=== PATIENT | female | born 1995 | race Caucasian/White ===

== ENCOUNTER 2018-03-02 06:03 | Emergency (ER) | payer OTHER ==
[2018-03-02] MEDS ORDERED: NA CHLORIDE 0.9% 1,000 ML ONE (06:24)
[2018-03-02 06:49] LABS: Absolute Lymphocytes (CBC) 2.5 K/uL (0.7-4.9); Absolute Monocytes 0.6 K/uL (0.1-1.3); Absolute Neutrophil 4.4 K/uL (1.8-8.0); Eosinophils % 2.1 % (0-4.4); Hematocrit 42.6 % (36.0-45.0); Lymphocytes % 31.9 % (15.3-44.8); MCH 32.2 pg (27.0-35.0); MCV 95.3 fL (80-100); MPV 9.3 fL (7.6-11.3); Monocytes % 8.1 % (3.3-12.3); RBC Red Blood Cell Count 4.47 M/uL (3.86-4.86)
[2018-03-02 06:53] LABS: Bicarbonate 25 mEq/L (21-31); Glucose Level 106 mg/dL (65-120); Potassium 3.9 mEq/L (3.6-5.0); Sodium Level 138 mEq/L (135-145)
[2018-03-02 06:54] LABS: BUN Blood Urea Nitrogen 10 mg/dL (6-20)
[2018-03-02 07:07] LABS: HCG, Quantitative < 5.0 mIU/mL (<5)
--- NOTE | 2018-03-02 07:17 | EDPHYS ---
Physician Documentation [facility] Name: Marta Lawson Age: 22 yrs Sex: Female : 1995 Arrival Date: 03/02/2018 Time: 06:07 Bed 5 Private MD: ED Physician Mike To HPI: 03/02 06:31 This 22 yrs old Female presents to ER via Ambulatory with complaints of snw Nausea, Abdominal Pain. 06:31 The patient presents to the emergency department with nausea, that is moderate, snw vomiting. Onset: The symptoms/episode began/occurred 3 day(s) ago, and became persistent. Possible causes: , sick contacts. The symptoms are aggravated by nothing. Associated signs and symptoms: Pertinent positives: abdominal pain, nausea, vomiting, cough. Severity of symptoms: At their worst the symptoms were moderate. 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 The patient has not recently seen a physician. positive and negative UPT over the weekend. 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 - Social history:: Smoking status: Patient uses tobacco products, smokes one pack cigarettes per day. ROS: 06:31 Eyes: Negative for injury, pain, redness, and discharge, ENT: Negative for injury, snw pain, and discharge, Neck: Negative for injury, pain, and swelling, Cardiovascular: Negative for chest pain, palpitations, and edema. 06:31 Back: Negative for injury and pain, : Negative for injury, bleeding, discharge, and swelling, MS/Extremity: Negative for injury and deformity, Skin: Negative for injury, rash, and discoloration, Neuro: Negative for headache, weakness, numbness, tingling, and seizure. 06:31 Constitutional: Positive for body aches, fatigue, malaise, poor PO intake. 06:31 Respiratory: Positive for cough. 06:31 Abdomen/GI: Positive for nausea and vomiting, abdominal cramps. Exam: 06:33 Constitutional: This is a well developed, well nourished patient who is awake, alert, snw and in no acute distress. Head/Face: Normocephalic, atraumatic. Eyes: Pupils equal round and reactive to light, extra-ocular motions intact. Lids and lashes normal. Conjunctiva and sclera are non-icteric and not injected. Cornea within normal limits. Periorbital areas with no swelling, redness, or edema. ENT: Nares patent. No nasal discharge, no septal abnormalities noted. Tympanic membranes are normal and external auditory canals are clear. Oropharynx with no redness, swelling, or masses, exudates, or evidence of obstruction, uvula midline. Mucous membranes moist. Neck: Trachea midline, no thyromegaly or masses palpated, and no cervical lymphadenopathy. Supple, full range of motion without nuchal rigidity, or vertebral point tenderness. No Meningismus. Chest/axilla: Normal chest wall appearance and motion. Nontender with no deformity. No lesions are appreciated. 06:33 Abdomen/GI: Soft, non-tender, with normal bowel sounds. No distension or tympany. No guarding or rebound. No evidence of tenderness throughout. Back: No spinal tenderness. No costovertebral tenderness. Full range of motion. Skin: Warm, dry with normal turgor. Normal color with no rashes, no lesions, and no evidence of cellulitis. MS/ Extremity: Pulses equal, no cyanosis. Neurovascular intact. Full, normal range of motion. Neuro: Awake and alert, GCS 15, oriented to person, place, time, and situation. Cranial nerves II-XII grossly intact. Motor strength 5/5 in all extremities. Sensory grossly intact. Cerebellar exam normal. Normal gait. 06:33 Cardiovascular: Rate: tachycardic. 06:33 Respiratory: the patient does not display signs of respiratory distress, Respirations: normal, Breath sounds: are clear throughout, bronchitic cough. Vital Signs: 06:16 BP 130 / 90; Pulse 115; Resp 18; Temp 98.4; Pulse Ox 100% on R/A; Weight 65.77 kg; aa1 Height 5 ft. 0 in. (152.40 cm); Pain 6/10; 06:57 BP 112 / 79; Pulse 78; Resp 16; Pulse Ox 100% on R/A; ak1 07:30 BP 127 / 79; Pulse 79; Resp 16; Temp 98.4; Pulse Ox 100% on R/A; Pain 6/10; sg 06:16 Body Mass Index 28.32 (65.77 kg, 152.40 cm) aa1 MDM: 06:20 Patient medically screened. snw 07:16 Data reviewed: vital signs, nurses notes. Data interpreted: Pulse oximetry: on room air snw is 100 %. Interpretation: normal. Counseling: I had a detailed discussion with the patient and/or guardian regarding: the historical points, exam findings, and any diagnostic results supporting the discharge/admit diagnosis, lab results, the need for outpatient follow up, to return to the emergency department if symptoms worsen or persist or if there are any questions or concerns that arise at home. Special discussion: Based on the patient's Hx, exam, and Dx evaluation, there is no indication for emergent surgery or inpatient Tx. It is understood by the patient/guardian that if the Sx's persist or worsen they need to return immediately for re-evaluation. Based on the history and exam findings, there is no indication for further emergent testing or inpatient evaluation. I discussed with the patient/guardian the need to see the primary care provider for further evaluation of the symptoms. 03/02 06:18 Order name: Quantitative Hcg; Complete Time: 07:08 snw 03/02 06:18 Order name: Abo/rh Typing; Complete Time: 07:14 snw 03/02 06:18 Order name: Basic Metabolic Panel; Complete Time: 07:08 snw 03/02 06:18 Order name: CBC with Diff; Complete Time: 07:03 snw 03/02 06:38 Order name: Test, Serum; Complete Time: 07:14 snw 03/02 06:40 Order name: Urine Dipstick--Ancillary (enter results) rg2 03/02 06:18 Order name: IV Saline Lock; Complete Time: 06:42 snw 03/02 06:18 Order name: Labs collected and sent; Complete Time: 06:42 snw 03/02 06:18 Order name: NPO; Complete Time: 06:23 snw 03/02 06:18 Order name: Urine Dipstick-Ancillary (obtain specimen); Complete Time: 06:39 snw 03/02 06:40 Order name: Urine --Ancillary (enter results) rg2 Administered Medications: 06:42 Drug: NS 0.9% 1000 ml Route: IV; Rate: 1 bolus; Site: right antecubital; ak1 07:30 Follow up: Response: No adverse reaction; IV Status: Completed infusion; IV Intake: sg 990ml Disposition: 03/02/18 07:16 Discharged to Home. Impression: Viral infection, unspecified. - Condition is Stable. - Discharge Instructions: Fever, Adult, Viral Infections, Rehydration, Adult. - Work release form, Medication Reconciliation Form, Thank You Letter, Antibiotic Education, Prescription Opioid Use form. - Follow up: Private Physician; When: 2 - 3 days; Reason: Recheck today's complaints, Continuance of care, Re-evaluation by your physician. Follow up: Emergency Department; When: As needed; Reason: Worsening of condition. Addendum: 03/05/2018 02:51 Co-signature as Attending Physician, Mike To MD. g s Signatures: Dispatcher [employer] EDReilly Rodriguez, RN RN sg Abigail aDvidson, RN RN aa1 Latha Fisher, BUILDING SERVICES ENGINEER-C BUILDING SERVICES ENGINEER-Csnw Makenna Rios RN RN ak1 Mike To MD MD
--- NOTE | 2018-03-02 07:17 | ER ---
Nurse's Notes [facility] Name: Marta Lawson Age: 22 yrs Sex: Female : 1995 Arrival Date: 03/02/2018 Time: 06:07 Bed 5 Private MD: Diagnosis: Viral infection, unspecified Presentation: 03/02 06:14 Presenting complaint: Patient states: cramping and nausea x 4 days. Reports she has aa1 taken 5 tests that have all been positive. Also c/o heavy, white vaginal discharge. Transition of care: patient was not received from another setting of care. Onset of symptoms was February 27, 2018. Care prior to arrival: None. 06:14 Method Of Arrival: Ambulatory aa1 06:14 Acuity: ROSEMARY 3 aa1 Triage Assessment: 06:16 General: Appears in no apparent distress. comfortable, Behavior is calm, cooperative, aa1 appropriate for age. 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 - Social history:: Smoking status: Patient uses tobacco products, smokes one pack cigarettes per day. Screenin:22 Abuse screen: Denies threats or abuse. Denies injuries from another. Nutritional ak1 screening: No deficits noted. Tuberculosis screening: No symptoms or risk factors identified. Fall Risk None identified. Assessment: 06:23 Pain: Complains of pain in abdomen. GI: Abdomen is round. ak1 06:40 General: Appears in no apparent distress. Behavior is calm, cooperative. Neuro: No ak1 deficits noted. Cardiovascular: No deficits noted. Respiratory: Reports cough that is pt stated she has been "taking care of my ex who has pneumonia". : Reports lower abd cramps X1 day with no cycle since jan 10. pt stated she has taken urine test at home with "some positive and some negative". EENT: No signs and/or symptoms were reported regarding the EENT system. Derm: No signs and/or symptoms reported regarding the dermatologic system. Musculoskeletal: No signs and/or symptoms reported regarding the musculoskeletal system. 07:03 Reassessment: report given to Reilly Valdivia RN and Kelly Hoffman RN. ak1 Vital Signs: 06:16 BP 130 / 90; Pulse 115; Resp 18; Temp 98.4; Pulse Ox 100% on R/A; Weight 65.77 kg; aa1 Height 5 ft. 0 in. (152.40 cm); Pain 6/10; 06:57 BP 112 / 79; Pulse 78; Resp 16; Pulse Ox 100% on R/A; ak1 07:30 BP 127 / 79; Pulse 79; Resp 16; Temp 98.4; Pulse Ox 100% on R/A; Pain 6/10; sg 06:16 Body Mass Index 28.32 (65.77 kg, 152.40 cm) aa1 ED Course: 06:07 Patient arrived in ED. al2 06:13 Mahin Knight, ASIF is Primary Nurse. bp 06:16 Triage completed. aa1 06:16 Arm band placed on right wrist. Patient placed in an exam room, on a stretcher. aa1 06:18 Latha [facility]C [facility]. snw 06:18 Mike To MD is Attending Physician. snw 06:22 Patient has correct armband on for positive identification. Bed in low position. Call ak1 light in reach. Side rails up X 1. Pulse ox on. NIBP on. 06:35 Initial lab(s) drawn, by sd, sent to lab. Urine collected: clean catch specimen, clear, ak1 UPT negative. 06:39 Inserted saline lock: 20 gauge in right antecubital area, using aseptic technique. ak1 Blood collected. 07:36 No provider procedures requiring assistance completed. IV discontinued, intact, sg bleeding controlled, No redness/swelling at site. Pressure dressing applied. Administered Medications: 06:42 Drug: NS 0.9% 1000 ml Route: IV; Rate: 1 bolus; Site: right antecubital; ak1 07:30 Follow up: Response: No adverse reaction; IV Status: Completed infusion; IV Intake: sg 990ml Intake: 07:30 IV: 990ml; Total: 990ml. sg Outcome: 07:16 Discharge ordered by . snw 07:30 Discharged to home ambulatory. sg 07:30 Condition: good 07:30 Discharge instructions given to patient, Instructed on discharge instructions, follow up and referral plans. Demonstrated understanding of instructions, follow-up care. 07:34 Patient left the ED. sg Signatures: Reilly Diehl RN Abigail Castillo RN RN aa1 Latha Fisher, CASING GRADER-C CASING GRADER-Csnw Makenna Rios RN RN ak1 Mahin Knight RN ASIF Nielsen, Carina lerner
[2018-03-02 07:42] VITALS: TEMP 98.4; O2SAT 100
[2018-03-02 07:43] VITALS: BP 112/79
[2018-03-02 07:48] LABS: Urine Blood NEGATIVE (NEG); Urine Glucose NEGATIVE (NEG); Urine Protein NEGATIVE (NEG); Urine Specific Gravity >1.030 (1.005-1.030)
== END 2018-03-02 07:34 | disposition home or self-care (01) ==
LOC: ER 06:03
DX: B34.9 Viral infection, unspecified (principal); F17.210 Nicotine dependence, cigarettes, uncomplicated; Z88.2 Allergy status to sulfonamides; Z91.013 Allergy to seafood
CPT/HCPCS: 36415; 80048; 81003; 81025; 84702; 84703; 85025; 86900; 86901; 96360; 99284; J7030

== ENCOUNTER 2018-05-23 00:10 | Emergency (ER) | payer OTHER ==
[2018-05-23] MEDS ORDERED: HYDROCODONE/APAP 10/325 TAB ONE (00:47)
--- NOTE | 2018-05-23 01:30 | EDPHYS ---
Physician Documentation [facility] Name: Marta Lawson Age: 23 yrs Sex: Female : 1995 Arrival Date: 05/23/2018 Time: 00:12 Bed 14 Private MD: ED Physician Charly Dozier HPI: 05/23 01:00 This 23 yrs old Female presents to ER via Wheelchair with complaints of Right pm1 Ankle Injury. 01:00 The patient presents with pain, that is acute. The complaints affect the right ankle. pm1 Onset: The symptoms/episode began/occurred just prior to arrival. Context: The problem was sustained outdoors, resulted from a mis-step by the patient, on a curb, The mechanism of injury involved inversion of the affected ankle. Associated signs and symptoms: Pertinent positives: swelling, Pertinent negatives: calf tenderness, fever, numbness, tingling. Modifying factors: The symptoms are alleviated by nothing, the symptoms are aggravated by weight bearing. Severity of symptoms: in the emergency department the symptoms are unchanged. The patient has not experienced similar symptoms in the past. Patient rolled her right ankle while trying to step on a curb to get into her vehicle. 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 ea Historical: - Allergies: 00:39 SEAFOOD; ea 00:39 Sulfa (Sulfonamide Antibiotics); ea - PMHx: 00:39 ADD/ADHD; Anxiety; Bipolar disorder; Depression; PTSD; ea - PSHx: 00:39 None; ea - Immunization history:: Adult Immunizations up to date. - Social history:: Smoking status: Patient uses tobacco products, smokes one pack cigarettes per day. - Ebola Screening: : No symptoms or risks identified at this time. ROS: 01:00 Constitutional: Negative for fever, chills, and weight loss, Eyes: Negative for injury, pm1 pain, redness, and discharge, ENT: Negative for injury, pain, and discharge, Neck: Negative for injury, pain, and swelling, Cardiovascular: Negative for chest pain, palpitations, and edema, Respiratory: Negative for shortness of breath, cough, wheezing, and pleuritic chest pain, Abdomen/GI: Negative for abdominal pain, nausea, vomiting, diarrhea, and constipation, Back: Negative for injury and pain, : Negative for injury, bleeding, discharge, and swelling. 01:00 Skin: Negative for injury, rash, and discoloration, Neuro: Negative for headache, weakness, numbness, tingling, and seizure. 01:00 MS/extremity: Positive for pain, of the right ankle, Negative for decreased range of motion, deformity. Exam: 01:00 Constitutional: This is a well developed, well nourished patient who is awake, alert, pm1 and in no acute distress. Head/Face: Normocephalic, atraumatic. Neck: Trachea midline, no thyromegaly or masses palpated, and no cervical lymphadenopathy. Supple, full range of motion without nuchal rigidity, or vertebral point tenderness. No Meningismus. Chest/axilla: Normal chest wall appearance and motion. Nontender with no deformity. No lesions are appreciated. Cardiovascular: Regular rate and rhythm with a normal S1 and S2. No gallops, murmurs, or rubs. Normal PMI, no JVD. No pulse deficits. Respiratory: Lungs have equal breath sounds bilaterally, clear to auscultation and percussion. No rales, rhonchi or wheezes noted. No increased work of breathing, no retractions or nasal flaring. Abdomen/GI: Soft, non-tender, with normal bowel sounds. No distension or tympany. No guarding or rebound. No evidence of tenderness throughout. Back: No spinal tenderness. No costovertebral tenderness. Full range of motion. Skin: Warm, dry with normal turgor. Normal color with no rashes, no lesions, and no evidence of cellulitis. 01:00 Musculoskeletal/extremity: Extremities: grossly normal except: noted in the right ankle: pain, swelling, tenderness, There is no evidence of decreased ROM, deformity, Sensation intact. Vital Signs: 00:42 BP 107 / 75; Pulse 112; Resp 20; Temp 98.0(O); Pulse Ox 98% on R/A; Weight 63.5 kg; ea Height 5 ft. 0 in. (152.40 cm); Pain 10/10; 01:29 BP 114 / 80; Pulse 100; Resp 18; Pulse Ox 99% on R/A; Pain 7/10; ea 00:42 Body Mass Index 27.34 (63.50 kg, 152.40 cm) ea MDM: 00:18 Patient medically screened. pm1 01:28 Data reviewed: vital signs. Data interpreted: Pulse oximetry: on room air is 98 %. pm1 Interpretation: normal. Counseling: I had a detailed discussion with the patient and/or guardian regarding: the historical points, exam findings, and any diagnostic results supporting the discharge/admit diagnosis, radiology results, the need for outpatient follow up, a orthopedic surgeon, to return to the emergency department if symptoms worsen or persist or if there are any questions or concerns that arise at home. 05/23 00:29 Order name: Ankle Right 3 View XRAY pm1 05/23 01:26 Order name: Crutches; Complete Time: 02:09 pm1 05/23 01:28 Order name: Splint - Ankle: Orthoglass: Stirrup; Complete Time: 02:09 pm1 Administered Medications: 00:53 Drug: [place] 10 mg-325 mg 1 tabs Route: PO; ea 01:31 Follow up: Response: No adverse reaction; Pain is decreased ea Disposition: 03:47 Co-signature as Attending Physician, Charly Dozier MD I agree with the assessment and kdr plan of care. Disposition: 05/23/18 01:30 Discharged to Home. Impression: Sprain of ankle - right. - Condition is Stable. - Discharge Instructions: Ankle Sprain, Cast or Splint Care, Crutch Use. - Prescriptions for Tylenol- Codeine #3 300-30 mg Oral Tablet - take 2 tablets by ORAL route every 6 hours As needed; 20 tablet. - Medication Reconciliation Form, Thank You Letter, Prescription Opioid Use form. - Follow up: Emergency Department; When: As needed; Reason: Worsening of condition. Follow up: Jeff Monte MD; When: 2 - 3 days; Reason: Recheck today's complaints, Continuance of care, Re-evaluation by your physician. - Problem is new. - Symptoms have improved. Signatures: Dispatcher [employer] EDMS Charly Dozier MD MD kdr Marinas, Patrick, NP RN MANAGED CARE pm1 Alysa Ruano RN RN ea Corrections: (The following items were deleted from the chart) 02:27 01:30 05/23/2018 01:30 Discharged to Home. Impression: Sprain of ankle - right. ea Condition is Stable. Forms are Medication Reconciliation Form, Thank You Letter, Antibiotic Education, Prescription Opioid Use. Follow up: Emergency Department; When: As needed; Reason: Worsening of condition. Follow up: Jeff Monte; When: 2 - 3 days; Reason: Recheck today's complaints, Continuance of care, Re-evaluation by your physician. Problem is new. Symptoms have improved. pm1
--- NOTE | 2018-05-23 01:30 | ER ---
Nurse's Notes [facility] Name: Marta Lawson Age: 23 yrs Sex: Female : 1995 Arrival Date: 05/23/2018 Time: 00:12 Bed 14 Private MD: Diagnosis: Sprain of ankle-right Presentation: 05/23 00:35 Presenting complaint: Patient states: Pt states she fell off a curb and might have ea rolled her right ankle. Transition of care: patient was not received from another setting of care. Onset of symptoms was May 23, 2018. Risk Assessment: Do you want to hurt yourself or someone else? Patient reports no desire to harm self or others. Initial Sepsis Screen: Does the patient meet any 2 criteria? No. Patient's initial sepsis screen is negative. Does the patient have a suspected source of infection? No. Patient's initial sepsis screen is negative. Care prior to arrival: None. 00:35 Method Of Arrival: Wheelchair ea 00:35 Acuity: ROSEMARY 5 ea Triage Assessment: 00:39 General: Appears uncomfortable, Behavior is calm, cooperative, appropriate for age. ea Pain: Complains of pain in right ankle Pain does not radiate. Pain currently is 10 out of 10 on a pain scale. Quality of pain is described as aching, Pain began 1 hour ago. EENT: No deficits noted. Neuro: Level of Consciousness is awake, alert, obeys commands, Oriented to person, place, time, situation. Cardiovascular: Heart tones S1 S2 present. Respiratory: Airway is patent Respiratory effort is even, unlabored, Respiratory pattern is regular, symmetrical. GI: No signs and/or symptoms were reported involving the gastrointestinal system. : No signs and/or symptoms were reported regarding the genitourinary system. Derm: Skin is pink, warm \T\ dry. Musculoskeletal: Swelling present in right ankle. 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 ea Historical: - Allergies: 00:39 SEAFOOD; ea 00:39 Sulfa (Sulfonamide Antibiotics); ea - PMHx: 00:39 ADD/ADHD; Anxiety; Bipolar disorder; Depression; PTSD; ea - PSHx: 00:39 None; ea - Immunization history:: Adult Immunizations up to date. - Social history:: Smoking status: Patient uses tobacco products, smokes one pack cigarettes per day. - Ebola Screening: : No symptoms or risks identified at this time. Screenin:00 Abuse screen: Denies threats or abuse. Nutritional screening: No deficits noted. ea Tuberculosis screening: No symptoms or risk factors identified. Fall Risk None identified. Assessment: 00:40 General: Appears uncomfortable, Behavior is crying, restless. Pain: Complains of pain ea in right ankle Pain radiates to right foot Pain currently is 10 out of 10 on a pain scale. Quality of pain is described as aching, Pain began 1 hour ago. Is continuous. Neuro: Level of Consciousness is awake, alert, obeys commands, Oriented to person, place, time, situation. Cardiovascular: Capillary refill < 3 seconds in right toes Patient's skin is warm and dry. Respiratory: Airway is patent Respiratory effort is even, unlabored, Respiratory pattern is regular, symmetrical. GI: No signs and/or symptoms were reported involving the gastrointestinal system. : No signs and/or symptoms were reported regarding the genitourinary system. EENT: No signs and/or symptoms were reported regarding the EENT system. Derm: Skin is pink, warm \T\ dry. Musculoskeletal: Swelling present in right ankle. Injury Description: swelling to right ankle. 01:30 Reassessment: Patient and/or family updated on plan of care and expected duration. Pain ea level reassessed. Patient is alert, oriented x 3, equal unlabored respirations, skin warm/dry/pink. 02:15 Reassessment: Patient and/or family updated on plan of care and expected duration. Pain ea level reassessed. Patient is alert, oriented x 3, equal unlabored respirations, skin warm/dry/pink. Discharge instruction given to patient, verbalized the understanding of instruction. Vital Signs: 00:42 BP 107 / 75; Pulse 112; Resp 20; Temp 98.0(O); Pulse Ox 98% on R/A; Weight 63.5 kg; ea Height 5 ft. 0 in. (152.40 cm); Pain 10/10; 01:29 BP 114 / 80; Pulse 100; Resp 18; Pulse Ox 99% on R/A; Pain 7/10; ea 00:42 Body Mass Index 27.34 (63.50 kg, 152.40 cm) ea ED Course: 00:12 Patient arrived in ED. am2 00:18 Marinas, Ravi, CARDIAC/VASCULAR SONOGRAPHER is PHCP. pm1 00:18 Charly Dozier MD is Attending Physician. pm1 00:35 Alysa Ruano RN is Primary Nurse. ea 00:37 Triage completed. ea 00:40 Arm band placed on right wrist. Patient placed in an exam room, on a stretcher, on ea pulse oximetry. 00:40 Patient has correct armband on for positive identification. Bed in low position. Call ea light in reach. Side rails up X2. 00:53 Ankle Right 3 View XRAY In Process Unspecified. EDMS 01:29 Jeff Monte MD is Referral Physician. pm1 02:09 No provider procedures requiring assistance completed. Patient did not have IV access ea during this emergency room visit. Administered Medications: 00:53 Drug: [place] 10 mg-325 mg 1 tabs Route: PO; ea 01:31 Follow up: Response: No adverse reaction; Pain is decreased ea Outcome: 01:30 Discharge ordered by MD. pm1 02:15 Discharged to home with crutches, with significant other. ea 02:25 Condition: improved ea 02:25 Discharge instructions given to patient, Instructed on discharge instructions, follow up and referral plans. medication usage, Demonstrated understanding of instructions, follow-up care, medications, Prescriptions given X 2. 02:27 Patient left the ED. ea Signatures: Dispatcher [employer] EDIA Ravi Reyes NP CARDIAC/VASCULAR SONOGRAPHER pm1 Estrellita Garcia am2 Alysa Ruano, RN RN ea
[2018-05-23 02:30] VITALS: TEMP 98
[2018-05-23 02:31] VITALS: BP 114/80; O2SAT 99
--- NOTE | 2018-05-23 08:15 | RAD REPORT ---
EXAM DESCRIPTION: RAD - Ankle Right 3 View - 05/23/2018 12:52 am CLINICAL HISTORY: Right ankle pain status post injury FINDINGS: Soft tissue swelling is present about the lateral malleolus. There is an equivocal tiny ch ip fracture from the lateral malleolus. No dislocation is seen
== END 2018-05-23 02:27 | disposition home or self-care (01) ==
LOC: ER 00:10
DX: S93.401A Sprain of unspecified ligament of right ankle, initial encounter (principal); X58.XXXA Exposure to other specified factors, initial encounter; Y93.01 Activity, walking, marching and hiking; Y92.89 Other specified places as the place of occurrence of the external cause; Z88.2 Allergy status to sulfonamides; Z91.013 Allergy to seafood; F17.210 Nicotine dependence, cigarettes, uncomplicated
CPT/HCPCS: 99284

== ENCOUNTER 2018-06-10 16:33 | Emergency (ER) | payer OTHER ==
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
[2018-06-10 17:48] VITALS: BP 120/75; TEMP 97.9; O2SAT 98
== END 2018-06-10 17:44 | disposition home or self-care (01) ==
LOC: ER 16:33
DX: S00.80XA Unspecified superficial injury of other part of head, initial encounter (principal); W22.09XA Striking against other stationary object, initial encounter; Y93.89 Activity, other specified; Y92.810 Car as the place of occurrence of the external cause; Z88.2 Allergy status to sulfonamides; Z91.013 Allergy to seafood
CPT/HCPCS: 70450; 99284

== ENCOUNTER 2018-06-25 14:17 | Emergency (ER) | payer OTHER ==
--- OUTSIDE RECORDS SUMMARY | 2018-06-25 14:21 | XMS REPORT | Summary of Care ---
:1995 Author Name Nelly Fritz M.A. Address Unavailable Unavailable , Care Team Providers Name Role Phone LOIDA IVORY M.D. Unavailable Unavailable Functional Status Name Dates Details Functional status health issues are not documented Status: Name Dates Details Cognitive status health issues are not documented Status: Problems Name Dates Details Grade 2 ankle sprain, right, initial encounter (845.00, S93.401A) Status: Active Sprain of anterior talofibular ligament of right ankle, initial encounter ( 845.09, S93.491A) Status: Active Sprain of calcaneofibular ligament of right ankle, initial encounter (845.02, S93.411A) Status: Active Medications Name Dates Details Medications not documented Allergies and Adverse Reactions Name Dates Details Allergy history not documented Status: Procedures Procedure Dates Details Procedures not documented Immunization Name Dates Details Immunizations not documented Social History Name Dates Details Unknown if ever smoked Vital Signs Date Test Result Details No Known Vitals to report Results Date Description Value Details Results not documented Plan of Care Name Dates Details Planned Observations Planned Goals not documented Planned Encounters Appointment; LOIDA IVORY M.D. On: 03-Jul-2018 15:15 Instructions Name Dates Details Instructions not documented Encounters Appointment; LOIDA IVORY M.D. On: 29-May-2018 12:45 Encounter Diagnosis: Problem not documented Appointment; LOIDA IVORY M.D. On: 29-May-2018 15:15 Encounter Diagnosis: Problem not documented Appointment; LOIDA IVORY M.D. On: 12-Jun-2018 15:00 Encounter Diagnosis: Problem not documented
[2018-06-25 15:03] LABS: Protime INR 1.06
--- NOTE | 2018-06-25 15:13 | RAD REPORT ---
EXAM DESCRIPTION: US - Abdomen Exam Limited - 06/25/2018 3:03 pm CLINICAL HISTORY: Abdominal pain. COMPARISON: None. FINDINGS: The gallbladder wall is not thickened. A gallstone is not seen. A 1 millimeter gallbladde r polyp is present The biliary tree is normal caliber. IMPRESSION: Small gallbladder polyp
[2018-06-25 15:22] LABS: Urine Blood NEGATIVE (NEG); Urine Glucose NEGATIVE (NEG); Urine Protein NEGATIVE (NEG); Urine Specific Gravity 1.025 (1.005-1.030)
[2018-06-25 15:24] LABS: Albumin 3.8 g/dL (3.4-5.0); Bilirubin Direct 0.1 mg/dL (0-0.2); Bilirubin Total 0.5 mg/dL (0.2-1.0); Magnesium 2.1 mg/dL (1.8-2.4); Potassium 3.5 mmol/L (3.5-5.1); Protein, Total 6.9 g/dL (6.4-8.2)
[2018-06-25] MEDS ORDERED: ONDANSETRON 4 MG/2 ML VIAL ONE (15:25)
[2018-06-25 15:46] LABS: Absolute Monocytes 0.5 K/uL (0.1-1.3); Absolute Neutrophil 4.8 K/uL (1.8-8.0); Basophils % 0.7 % (0-1.3); Eosinophils % 1.1 % (0-4.4); Hematocrit 41.3 % (36.0-45.0); MCH 33.3 pg (27.0-35.0); MCV 97.1 fL (80-100); MPV 9.6 fL (7.6-11.3); Monocytes % 6.4 % (3.3-12.3); RBC Red Blood Cell Count 4.25 M/uL (3.86-4.86)
--- NOTE | 2018-06-25 16:09 | EDPHYS ---
Physician Documentation [facility] Name: Marta Lawson Age: 23 yrs Sex: Female : 1995 Arrival Date: 06/25/2018 Time: 14:19 Bed 14 Private MD: ED Physician Familia Tolliver HPI: 06/25 14:58 This 23 yrs old Female presents to ER via Ambulatory with complaints of Chest jr8 Pain, Nausea. 14:58 The patient or guardian reports chest pain that is located primarily in the substernal jr8 area. The pain does not radiate. Associated signs and symptoms: Pertinent positives: nausea. The chest pain is described as sharp, stabbing. Duration: The patient or guardian reports multiple episodes. Modifying factors: The symptoms are alleviated by nothing. the symptoms are aggravated by nothing. Severity of pain: At its worst the pain was moderate in the emergency department the pain is unchanged. The patient has not experienced similar symptoms in the past. The patient has not recently seen a physician. 14:58 Patient stated that she has not been able to eat well. Has been nauseated every time jr8 she wants to eat. Has had chest pain as well . 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 - Social history:: Smoking status: Patient uses tobacco products, smokes one-half pack cigarettes per day. - Ebola Screening: : Patient negative for fever greater than or equal to 101.5 degrees Fahrenheit, and additional compatible Ebola Virus Disease symptoms Patient denies exposure to infectious person Patient denies travel to an Ebola-affected area in the 21 days before illness onset No symptoms or risks identified at this time. ROS: 14:58 Eyes: Negative for injury, pain, redness, and discharge, ENT: Negative for injury, jr8 pain, and discharge, Neck: Negative for injury, pain, and swelling, Respiratory: Negative for shortness of breath, cough, wheezing, and pleuritic chest pain, Back: Negative for injury and pain, MS/Extremity: Negative for injury and deformity, Skin: Negative for injury, rash, and discoloration, Neuro: Negative for headache, weakness, numbness, tingling, and seizure. 14:58 Cardiovascular: Positive for chest pain, Negative for edema, orthopnea, palpitations, paroxysmal nocturnal dyspnea. 14:58 Abdomen/GI: Positive for nausea, Negative for abdominal pain, diarrhea, constipation, abdominal cramps, abdominal distension, anorexia, dysphagia, hematemesis, black/tarry stool, rectal pain, rectal bleeding, bowel incontinence, flatulence. Exam: 14:58 Eyes: Pupils equal round and reactive to light, extra-ocular motions intact. Lids and jr8 lashes normal. Conjunctiva and sclera are non-icteric and not injected. Cornea within normal limits. Periorbital areas with no swelling, redness, or edema. ENT: Nares patent. No nasal discharge, no septal abnormalities noted. Tympanic membranes are normal and external auditory canals are clear. Oropharynx with no redness, swelling, or masses, exudates, or evidence of obstruction, uvula midline. Mucous membranes moist. Neck: Trachea midline, no thyromegaly or masses palpated, and no cervical lymphadenopathy. Supple, full range of motion without nuchal rigidity, or vertebral point tenderness. No Meningismus. Cardiovascular: Regular rate and rhythm with a normal S1 and S2. No gallops, murmurs, or rubs. Normal PMI, no JVD. No pulse deficits. Respiratory: Lungs have equal breath sounds bilaterally, clear to auscultation and percussion. No rales, rhonchi or wheezes noted. No increased work of breathing, no retractions or nasal flaring. Back: No spinal tenderness. No costovertebral tenderness. Full range of motion. Skin: Warm, dry with normal turgor. Normal color with no rashes, no lesions, and no evidence of cellulitis. MS/ Extremity: Pulses equal, no cyanosis. Neurovascular intact. Full, normal range of motion. Neuro: Awake and alert, GCS 15, oriented to person, place, time, and situation. Cranial nerves II-XII grossly intact. Motor strength 5/5 in all extremities. Sensory grossly intact. Cerebellar exam normal. Normal gait. 14:58 Abdomen/GI: Inspection: abdomen appears normal, Bowel sounds: active, all quadrants, Palpation: abdomen is soft and non-tender, in all quadrants, mass, is not appreciated, rebound tenderness, is not appreciated, voluntary guarding, is not appreciated, involuntary guarding, is not appreciated, no appreciated organomegaly, Indicators: McBurney's point is not tender, Mclaughlin's sign is negative, Rovsing's sign is negative, Liver: no appreciated palpable abnormalities, tenderness, is not appreciated, Patient extremely nauseated when I pressed on epigastric region . Vital Signs: 14:26 BP 108 / 80; Pulse 88; Resp 19; Temp 98.6; Pulse Ox 98% on R/A; Weight 58.97 kg; Height aj 5 ft. 0 in. (152.40 cm); 15:30 BP 103 / 62; Pulse 78; Resp 14; Pulse Ox 97% on R/A; Pain 7/10; ch 16:28 BP 105 / 58; Pulse 70; Resp 14; Temp 98.8; Pulse Ox 99% on R/A; Pain 6/10; ch 14:26 Body Mass Index 25.39 (58.97 kg, 152.40 cm) aj MDM: 14:25 Patient medically screened. [facility] 16:02 Data reviewed: vital signs, nurses notes, lab test result(s), EKG, radiologic studies, [facility] plain films, ultrasound, and as a result, I will discharge patient. Data interpreted: Pulse oximetry: on room air is 97 %. Interpretation: normal. Counseling: I had a detailed discussion with the patient and/or guardian regarding: the historical points, exam findings, and any diagnostic results supporting the discharge/admit diagnosis, lab results, radiology results, the need for outpatient follow up, a risk management analyst, to return to the emergency department if symptoms worsen or persist or if there are any questions or concerns that arise at home. Response to treatment: the patient's symptoms have resolved after treatment. 06/25 14:42 Order name: Basic Metabolic Panel; Complete Time: 15:44 06/25 14:42 Order name: CBC with Diff; Complete Time: 16:10 06/25 14:42 Order name: LFT's; Complete Time: 15:44 06/25 14:42 Order name: Magnesium; Complete Time: 15:44 06/25 14:42 Order name: NT PRO-BNP; Complete Time: 15:44 06/25 14:42 Order name: PT-INR; Complete Time: 15:50 06/25 14:42 Order name: Troponin (emerg Dept Use Only); Complete Time: 15:44 06/25 14:42 Order name: XRAY Chest (1 view); Complete Time: 17:27 06/25 14:42 Order name: Lipase; Complete Time: 15:44 06/25 14:43 Order name: US Abdomen Limited; Complete Time: 15:20 06/25 14:45 Order name: Urine Dipstick--Ancillary (enter results) bd 06/25 14:45 Order name: Urine --Ancillary (enter results) bd 06/25 14:45 Order name: Urine Dipstick-Ancillary; Complete Time: 15:44 EDMS 06/25 14:45 Order name: Urine --Ancillary; Complete Time: 15:44 EDMS 06/25 14:42 Order name: Urine Test (obtain specimen); Complete Time: 14:53 06/25 14:42 Order name: EKG; Complete Time: 14:43 06/25 14:42 Order name: Cardiac monitoring; Complete Time: 14:53 06/25 14:42 Order name: EKG - Nurse/Tech; Complete Time: 14:53 06/25 14:42 Order name: IV Saline Lock; Complete Time: 14:53 06/25 14:42 Order name: Labs collected and sent; Complete Time: 14:53 06/25 14:42 Order name: O2 Per Protocol; Complete Time: 14:53 06/25 14:42 Order name: O2 Sat Monitoring; Complete Time: 14:53 06/25 14:42 Order name: Urine Dipstick-Ancillary (obtain specimen); Complete Time: 14:53 Administered Medications: 15:30 Drug: Zofran 4 mg Route: IVP; Site: right forearm; 16:30 Follow up: Response: No adverse reaction ch Disposition: 17:58 Co-signature as Attending Physician, Familia Tolliver MD. rn Disposition: 06/25/18 16:09 Discharged to Home. Impression: Nausea and vomiting, Chest pain, unspecified. - Condition is Stable. - Discharge Instructions: Nonspecific Chest Pain, Gastritis, Adult. - Prescriptions for omeprazole 40 mg Oral capsule,delayed release(DR/EC) - take 1 capsule by ORAL route once daily before a meal; 30 capsule. ondansetron 4 mg Oral tablet,disintegrating - place 1 tablet by TRANSLINGUAL route every 8 hours; 12 tablet. - Work release form, Medication Reconciliation Form, Thank You Letter, Antibiotic Education, Prescription Opioid Use form. - Follow up: Kiki Raymond MD; When: 1 - 2 days; Reason: Recheck today's complaints, Continuance of care, Re-evaluation by your physician. - Problem is new. - Symptoms have improved. Signatures: Dispatcher [employer] EDMS Lisa Stanley RN RN ch Myers, Amanda, RN RN aj Nieto, Roman, MD MD rn Roszak, Josh, PA PA jr8 Corrections: (The following items were deleted from the chart) 16:37 16:09 06/25/2018 16:09 Discharged to Home. Impression: Nausea and vomiting; Chest pain, ch unspecified. Condition is Stable. Forms are Medication Reconciliation Form, Thank You Letter, Antibiotic Education, Prescription Opioid Use. Follow up: Kiki Raymond; When: 1 - 2 days; Reason: Recheck today's complaints, Continuance of care, Re-evaluation by your physician. Problem is new. Symptoms have improved. jr8
--- NOTE | 2018-06-25 16:09 | ER ---
Nurse's Notes [facility] Name: Marta Lawson Age: 23 yrs Sex: Female : 1995 Arrival Date: 06/25/2018 Time: 14:19 Bed 14 Private MD: Diagnosis: Nausea and vomiting;Chest pain, unspecified Presentation: 06/25 14:24 Presenting complaint: Patient states: Reports SOB, chest pain, nausea for 2 weeks. aj Transition of care: patient was not received from another setting of care. Onset of symptoms was June 10, 2018. Risk Assessment: Do you want to hurt yourself or someone else? Patient reports no desire to harm self or others. Initial Sepsis Screen: Does the patient meet any 2 criteria? No. Patient's initial sepsis screen is negative. Does the patient have a suspected source of infection? No. Patient's initial sepsis screen is negative. Note Patient reports being noncompliant with psych medications or follow up. Care prior to arrival: None. 14:24 Method Of Arrival: Ambulatory 14:24 Acuity: ROSEMARY 3 aj Triage Assessment: 14:26 General: Appears in no apparent distress. comfortable, Behavior is calm, cooperative, aj appropriate for age. Pain: Complains of pain in chest. Neuro: Level of Consciousness is awake, alert, obeys commands, Oriented to person, place, time, situation, Appropriate for age. Cardiovascular: Reports chest pain, Capillary refill < 3 seconds in bilateral fingers Patient's skin is warm and dry. Respiratory: Airway is patent Respiratory effort is even, unlabored, Respiratory pattern is regular, symmetrical. GI: Reports nausea, vomiting. Derm: Skin is intact, is healthy with good turgor, Skin is pink, warm \T\ dry. normal. 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 - Social history:: Smoking status: Patient uses tobacco products, smokes one-half pack cigarettes per day. - Ebola Screening: : Patient negative for fever greater than or equal to 101.5 degrees Fahrenheit, and additional compatible Ebola Virus Disease symptoms Patient denies exposure to infectious person Patient denies travel to an Ebola-affected area in the 21 days before illness onset No symptoms or risks identified at this time. Screenin:54 Abuse screen: Denies threats or abuse. Denies injuries from another. Nutritional ch screening: No deficits noted. Tuberculosis screening: Fall Risk None identified. Assessment: 14:54 Reassessment: Patient appears in no apparent distress at this time. Patient and/or ch family updated on plan of care and expected duration. Pain level reassessed. Patient is alert, oriented x 3, equal unlabored respirations, skin warm/dry/pink. General: Appears in no apparent distress. uncomfortable, Behavior is calm, cooperative, appropriate for age. Pain: Complains of pain in head and chest Pain does not radiate. Pain currently is 7 out of 10 on a pain scale. Pain began gradually, two weeks ago. Neuro: No deficits noted. Level of Consciousness is awake, alert, obeys commands, Oriented to person, place, time, situation. Cardiovascular: Reports chest pain, nausea, Heart tones S1 S2 present Capillary refill < 3 seconds in bilateral fingers toes Clubbing of nail beds is absent JVD is absent Patient's skin is warm and dry. Pulses are all present. Edema is absent. Respiratory: Airway is patent Respiratory effort is even, unlabored, Breath sounds are clear bilaterally. GI: Abdomen is flat, non-distended, Bowel sounds present X 4 quads. Abd is soft X 4 quads Abdomen is tender to palpation in right upper quadrant and left upper quadrant Reports nausea, vomiting. : No signs and/or symptoms were reported regarding the genitourinary system. Derm: No signs and/or symptoms reported regarding the dermatologic system. 15:30 Reassessment: Patient appears in no apparent distress at this time. No changes from previously documented assessment. Patient and/or family updated on plan of care and expected duration. Pain level reassessed. Patient is alert, oriented x 3, equal unlabored respirations, skin warm/dry/pink. 16:28 Reassessment: Patient appears in no apparent distress at this time. Patient and/or family updated on plan of care and expected duration. Pain level reassessed. Patient is alert, oriented x 3, equal unlabored respirations, skin warm/dry/pink. Patient states feeling better. Vital Signs: 14:26 BP 108 / 80; Pulse 88; Resp 19; Temp 98.6; Pulse Ox 98% on R/A; Weight 58.97 kg; Height aj 5 ft. 0 in. (152.40 cm); 15:30 BP 103 / 62; Pulse 78; Resp 14; Pulse Ox 97% on R/A; Pain 7/10; ch 16:28 BP 105 / 58; Pulse 70; Resp 14; Temp 98.8; Pulse Ox 99% on R/A; Pain 6/10; ch 14:26 Body Mass Index 25.39 (58.97 kg, 152.40 cm) ED Course: 14:19 Patient arrived in ED. mr 14:25 Reza Lott PA is PHCP. jr8 14:25 Familia Tolliver MD is Attending Physician. jr8 14:26 Triage completed. aj 14:26 Arm band placed on right wrist. Patient placed in an exam room. aj 14:35 Patient has correct armband on for positive identification. Placed in gown. Bed in low mh5 position. Call light in reach. Side rails up X 1. Warm blanket given. Pillow given. Pulse ox on. NIBP on. 14:35 Urine collected: clean catch specimen, clear. mh5 14:53 Lisa Stanley, RN is Primary Nurse. ch 14:54 No apparent distress. ch 14:54 Initial lab(s) drawn, by il, sent to lab. Inserted saline lock: 18 gauge in right ch forearm, using aseptic technique. Blood collected. Patient maintains SpO2 saturation greater than 95% on room air. 14:55 Patient taken to ultrasound. via wheelchair. hr 15:02 Ultrasound completed. Patient moved to radiology via wheelchair. hr 15:03 US Abdomen Limited In Process Unspecified. EDMS 15:06 XRAY Chest (1 view) In Process Unspecified. EDMS 15:21 EKG done, by hvac technician residential. reviewed by Reza NIELSEN. sm3 16:03 Kiki Raymond MD is Referral Physician. jr8 16:28 No provider procedures requiring assistance completed. IV discontinued, intact, ch bleeding controlled, No redness/swelling at site. Pressure dressing applied. Administered Medications: 15:30 Drug: Zofran 4 mg Route: IVP; Site: right forearm; 16:30 Follow up: Response: No adverse reaction Outcome: 16:09 Discharge ordered by MD. hughes 16:28 Discharged to home ambulatory. 16:28 Condition: improved 16:28 Discharge instructions given to patient, Instructed on discharge instructions, follow up and referral plans. medication usage, Demonstrated understanding of instructions, follow-up care, medications, Prescriptions given X 2. 16:37 Patient left the ED. Signatures: Dispatcher [employer] EDLisa Verde, Estrellita Cox RN, ch, RN RN aj Rivera, Maria mr Elio, Reza Brandt PA PA jr8 Martinez, Maria [facility] Dania Rodriguez [facility]
--- NOTE | 2018-06-25 16:27 | RAD REPORT ---
EXAM DESCRIPTION: RAD - Chest Single View - 06/25/2018 3:10 pm CLINICAL HISTORY: Chest pain, shortness of breath COMPARISON: June 2017 TECHNIQUE: AP portable chest image was obtained 1500 hours . FINDINGS: Lungs are clear. Heart and vasculature are normal. No measurable pleural effusion and no p neumothorax. No gross bony abnormality seen. No acute aortic findings suspected. IMPRESSION: No acute cardiopulmonary process.
--- NOTE | 2018-06-25 16:37 | EKG ---
Test Date: 2018-06-25 Test Time: 14:48:43 Finisher Denture: LISSETH MEASUREMENT RESULTS: Intervals: Rate: 82 SC: 134 QRSD: 90 QT: 352 QTc: 411 [place]: P: 22 SC: 134 QRS: 63 T: 31 INTERPRETIVE STATEMENTS: Normal sinus rhythm with sinus arrhythmia Normal ECG Compared to ECG 02/06/2017 00:10:57 Myocardial infarct finding no longer present Electronically Signed On 06-25-18 16:36:55 CDT by Carlos Cummins
[2018-06-25 16:45] VITALS: BP 105/58; TEMP 98.8; O2SAT 99
== END 2018-06-25 16:37 | disposition home or self-care (01) ==
LOC: ER 14:17
DX: R07.9 Chest pain, unspecified (principal); R11.2 Nausea with vomiting, unspecified; Z88.2 Allergy status to sulfonamides; F17.210 Nicotine dependence, cigarettes, uncomplicated; Z91.030 Bee allergy status; Z91.013 Allergy to seafood
CPT/HCPCS: 36415; 71045; 76705; 80048; 80076; 81003; 81025; 83690; 83735; 83880; 84484; 85025; 85610; 93005; 96374; 99285; J2405

== ENCOUNTER 2018-10-03 21:48 | Emergency (ER) | payer SELFPAY ==
--- OUTSIDE RECORDS SUMMARY | 2018-10-03 21:51 | XMS REPORT | Summary of Care ---
:1995 Author Name LOIDA IVORY M.D. Address Unavailable Unavailable , Care Team Providers Name Role Phone LOIDA IVORY M.D. Unavailable Unavailable Unavailable Unavailable Unavailable Functional Status Name Dates Details [...] [id number]) Status: Active Medications Name Dates Details Meloxicam 7.5 MG Oral Tablet TAKE 1 TABLET DAILY NEEDED. Quantity: 1 Refills: 0 LOIDA IVORY M.D. Start : 14-Aug-2018 Active 30 Tablet Bottle Allergies and Adverse Reactions Name Dates Details No Known Drug Allergies (Allergy) Status: Active Procedures Procedure Dates Details MR Ankle wo contrast [id number] Date: 14-Aug-2018 Immunization Name Dates Details Immunizations not documented Social History Name Dates Details Unknown if ever smoked Vital Signs Date Test Result Details No Known Vitals to report Results Date Description Value Details Results not documented Plan of Care Name Dates Details Planned Observations Planned Goals not documented Interventions Provided Medication ChangesMeloxicam 7.5 MG Oral Tablet - StartLabs/Procedures/ImagingMR Ankle wo contrast [id number]; To Be Done: 14 Aug 2018 Instructions Name Dates Details Instructions not documented Encounters Appointment; LOIDA IVORY M.D. On: 29-May-2018 12:45 Encounter Diagnosis: Problem not documented Appointment; LOIDA IVORY M.D. On: 29-May-2018 15:15 Encounter Diagnosis: Problem not documented Appointment; LOIDA IVORY M.D. On: 12-Jun-2018 15:00 Encounter Diagnosis: Problem not documented Appointment; LOIDA IVORY M.D. On: 03-Jul-2018 15:15 Encounter Diagnosis: Problem not documented Appointment; LOIDA IVORY M.D. On: 31-Jul-2018 13:15 Encounter Diagnosis: Problem not documented Appointment; LOIDA IVORY M.D. On: 14-Aug-2018 13:00 Encounter Diagnosis: Problem not documented
[2018-10-03] MEDS ORDERED: IBUPROFEN 400 MG TAB ONE (22:48)
[2018-10-03] MEDS ORDERED: HYDROCODONE/APAP 5/325 MG TAB ONE (22:49)
--- NOTE | 2018-10-03 22:51 | ER ---
Nurse's Notes [facility] Name: Marta Lawson Age: 23 yrs Sex: Female : 1995 Arrival Date: 10/03/2018 Time: 21:53 Bed 16 Private MD: Diagnosis: Jaw pain-Left Upper Presentation: 10/03 22:04 Presenting complaint: Patient states: she started having left sided facial pain with bb swelling to her face and jaw pain thinks it may be related to a toothache which started today pt took tylenol #3 with no relief. Transition of care: patient was not received from another setting of care. Onset of symptoms was October 03, 2018. Risk Assessment: Do you want to hurt yourself or someone else? Patient reports no desire to harm self or others. Initial Sepsis Screen: Does the patient meet any 2 criteria? No. Patient's initial sepsis screen is negative. Does the patient have a suspected source of infection? No. Patient's initial sepsis screen is negative. Care prior to arrival: None. 22:04 Method Of Arrival: Ambulatory bb 22:04 Acuity: ROSEMARY 5 bb Triage Assessment: 22:10 General: Appears in no apparent distress. uncomfortable, Behavior is calm, cooperative, jb4 appropriate for age. 22:10 EENT: Reports pain when swallowing. 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 - Social history:: Smoking status: Patient uses tobacco products, smokes one pack cigarettes per day. - Ebola Screening: : No symptoms or risks identified at this time. Screenin:10 Abuse screen: Denies threats or abuse. jb4 22:10 Nutritional screening: No deficits noted. Tuberculosis screening: No symptoms or risk jb4 factors identified. Fall Risk None identified. Assessment: 22:10 General: Appears in no apparent distress. uncomfortable, Behavior is calm, cooperative, jb4 appropriate for age. Pain: Complains of pain in mouth Pain does not radiate. Pain currently is 9 out of 10 on a pain scale. Neuro: Level of Consciousness is awake, alert, obeys commands, Oriented to person, place, time, situation. Cardiovascular: Patient's skin is warm and dry. Respiratory: Airway is patent Respiratory effort is even, unlabored, Respiratory pattern is regular, symmetrical. GI: No signs and/or symptoms were reported involving the gastrointestinal system. : No signs and/or symptoms were reported regarding the genitourinary system. EENT: Throat is pink has enlarged tonsils on left. Derm: Skin is intact, Skin is pink, warm \T\ dry. Musculoskeletal: Circulation, motion, and sensation intact. 23:00 Reassessment: Patient appears in no apparent distress at this time. Patient and/or jb4 family updated on plan of care and expected duration. Pain level reassessed. Patient is alert, oriented x 3, equal unlabored respirations, skin warm/dry/pink. Vital Signs: 22:06 BP 111 / 81; Pulse 82; Resp 16 S; Temp 98.7(O); Pulse Ox 98% on R/A; Weight 63.5 kg bb (R); Height 5 ft. 4 in. (162.56 cm) (R); Pain 10/10; 22:30 BP 111 / 84; Pulse 75; Resp 18; Pulse Ox 98% ; jb4 22:06 Body Mass Index 24.03 (63.50 kg, 162.56 cm) ED Course: 21:53 Patient arrived in ED. es 22:03 Soren Amin RN is Primary Nurse. jb4 22:04 Bobo Cruz PA is PHCP. cp 22:04 Shimon Elmore MD is Attending Physician. cp 22:05 Triage completed. bb 22:06 Arm band placed on Patient placed in an exam room, on a stretcher, on pulse oximetry. bb Family accompanied patient. 22:10 Patient has correct armband on for positive identification. Bed in low position. Side jb4 rails up X 1. Pulse ox on. NIBP on. 23:00 No provider procedures requiring assistance completed. Patient did not have IV access jb4 during this emergency room visit. Administered Medications: 22:45 Drug: HYDROcodone-acetaminophen 5 mg-325 mg 1 tabs Route: PO; jb4 23:00 Follow up: Response: No adverse reaction jb4 22:45 Drug: Ibuprofen 800 mg Route: PO; jb4 23:00 Follow up: Response: No adverse reaction jb4 Outcome: 22:36 Discharge ordered by . cp 22:50 Discharged to home ambulatory. jb4 22:50 Condition: stable 22:50 Discharge instructions given to patient, family, Instructed on discharge instructions, follow up and referral plans. medication usage, Demonstrated understanding of instructions, follow-up care, medications, Prescriptions given X 2. 22:54 Patient left the ED. jb4 Signatures: Nicki Tabor Brenda, RN RN Bobo [place] PA PA cp Bryson, James, RN RN jb4
--- NOTE | 2018-10-03 22:51 | EDPHYS ---
Physician Documentation [facility] Name: Marta Lawson Age: 23 yrs Sex: Female : 1995 Arrival Date: 10/03/2018 Time: 21:53 Bed 16 Private MD: ED Physician Shimon Elmore HPI: 10/03 22:30 This 23 yrs old Female presents to ER via Ambulatory with complaints of cp Toothache. 22:30 The patient presents with pain. The problem is located in the left upper jaw pain. cp Onset: The symptoms/episode began/occurred today. 22:30 Duration: The symptoms are continuous. cp 22:30 Associated signs and symptoms: Pertinent negatives: dysphagia, fever, inability to eat, cp swelling, facial. Severity of symptoms: in the emergency department the symptoms are unchanged, despite home interventions. 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 - Social history:: Smoking status: Patient uses tobacco products, smokes one pack cigarettes per day. - Ebola Screening: : No symptoms or risks identified at this time. ROS: 22:31 Constitutional: Negative for fever, poor PO intake. cp 22:31 Eyes: Negative for injury, pain, redness, and discharge. cp 22:31 ENT: Positive for dental pain, left upper jaw pain, Negative for ear pain, sinus pain, sore throat, difficulty swallowing, difficulty handling secretions, hoarseness. 22:31 Respiratory: Negative for cough, shortness of breath, wheezing. 22:31 Abdomen/GI: Negative for abdominal pain, nausea and vomiting, diarrhea, constipation. 22:31 Skin: Negative for cellulitis, rash. 22:31 Neuro: Negative for altered mental status, headache, weakness. 22:31 All other systems are negative. Exam: 22:33 Head/Face: Normocephalic, atraumatic. cp 22:33 Constitutional: The patient appears in no acute distress, alert, awake, non-toxic, well developed, well nourished. 22:33 Eyes: Periorbital structures: appear normal, Pupils: equal, round, and reactive to light and accomodation, Extraocular movements: intact throughout, Conjunctiva: normal, no exudate, no injection, Sclera: no appreciated abnormality, Lids and lashes: appear normal, bilaterally. 22:33 ENT: External ear(s): are unremarkable, Ear canal(s): are normal, clear, TM's: bulging, is not appreciated, bilaterally, dullness, bilaterally, erythema, is not appreciated, bilaterally, Nose: is normal, Mouth: Lips: moist, Oral mucosa: pink and intact, moist, Posterior pharynx: is normal, no erythema, no exudate, Dental exam: abscess, is not appreciated, dental caries, that is mild, diffusely, gum swelling, that is mild, specifically in the upper left second molar (#15) and upper left third molar (#16), pain, that is moderate, specifically in the upper left second molar (#15) and upper left third molar (#16), Voice: is normal. 22:33 Neck: Lymph nodes: no appreciated lymphadenopathy. 22:33 Chest/axilla: Inspection: normal, Palpation: is normal, no crepitus, no tenderness. cp 22:33 Cardiovascular: Rate: normal, Rhythm: regular. 22:33 Respiratory: the patient does not display signs of respiratory distress, Respirations: normal, no use of accessory muscles, no retractions, no splinting, no tachypnea, labored breathing, is not present, Breath sounds: are clear throughout, no decreased breath sounds, no stridor, no wheezing. 22:33 Abdomen/GI: Exam negative for discomfort, distension, guarding, Inspection: abdomen appears normal. 22:33 Skin: cellulitis, is not appreciated, no rash present. 22:33 Neuro: Orientation: to person, place \T\ time. Mentation: is normal. cp Vital Signs: 22:06 BP 111 / 81; Pulse 82; Resp 16 S; Temp 98.7(O); Pulse Ox 98% on R/A; Weight 63.5 kg bb (R); Height 5 ft. 4 in. (162.56 cm) (R); Pain 10/10; 22:30 BP 111 / 84; Pulse 75; Resp 18; Pulse Ox 98% ; jb4 22:06 Body Mass Index 24.03 (63.50 kg, 162.56 cm) bb MDM: 22:04 Patient medically screened. cp 22:35 Differential diagnosis: dental caries, dental abscess, pericoronitis, gingivostomatitis.cp 22:35 Data reviewed: vital signs, nurses notes, and as a result, I will discharge patient. cp Counseling: I had a detailed discussion with the patient and/or guardian regarding: the historical points, exam findings, and any diagnostic results supporting the discharge/admit diagnosis, the need for outpatient follow up, for definitive care, a dentist, to return to the emergency department if symptoms worsen or persist or if there are any questions or concerns that arise at home. Administered Medications: 22:45 Drug: HYDROcodone-acetaminophen 5 mg-325 mg 1 tabs Route: PO; jb4 23:00 Follow up: Response: No adverse reaction jb4 22:45 Drug: Ibuprofen 800 mg Route: PO; jb4 23:00 Follow up: Response: No adverse reaction jb4 Disposition: 10/04 04:10 Co-signature as Attending Physician, Shimon Elmore MD. madie Disposition: 10/03/18 22:36 Discharged to Home. Impression: Jaw pain - Left Upper. - Condition is Stable. - Discharge Instructions: Dental Pain. - Prescriptions for Amoxicillin 875 mg Oral Tablet - take 1 tablet by ORAL route every 12 hours for 10 days; 20 tablet. Tramadol 50 mg Oral Tablet - take 1 tablet by ORAL route every 8 hours as needed; 12 tablet. - Medication Reconciliation Form, Thank You Letter, Antibiotic Education, Prescription Opioid Use form. - Follow up: Private Physician; When: 2 - 3 days; Reason: Recheck today's complaints. - Problem is new. - Symptoms have improved. Signatures: Shimon Elmore MD MD pkАнна Schwartz RN RN bb Bobo Cruz PA PA cp Bryson, James, RN RN jb4 Corrections: (The following items were deleted from the chart) 10/03 22:54 22:36 10/03/2018 22:36 Discharged to Home. Impression: Jaw pain - Left Upper. Condition jb4 is Stable. Forms are Medication Reconciliation Form, Thank You Letter, Antibiotic Education, Prescription Opioid Use. Follow up: Private Physician; When: 2 - 3 days; Reason: Recheck today's complaints. Problem is new. Symptoms have improved. cp
[2018-10-03 23:02] VITALS: TEMP 98.7; O2SAT 98
[2018-10-03 23:04] VITALS: BP 111/84
== END 2018-10-03 22:54 | disposition home or self-care (01) ==
LOC: ER 21:48
DX: K02.9 Dental caries, unspecified (principal); R68.84 Jaw pain; F17.210 Nicotine dependence, cigarettes, uncomplicated
CPT/HCPCS: 99283

== ENCOUNTER 2019-01-13 09:19 | Emergency (ER) | payer OTHER, SELFPAY ==
--- OUTSIDE RECORDS SUMMARY | 2019-01-13 09:26 | XMS REPORT ---
:1995 [facility] Address [address] [place] [address] [address] [place] [address] Care Team Providers Name Role Phone Unavailable Unavailable Unavailable Problems This patient has no known problems. Allergies, Adverse Reactions, Alerts This patient has no known allergies or adverse reactions. Medications This patient has no known medications.
[2019-01-13] MEDS ORDERED: ONDANSETRON 4 MG (ODT) TAB ONE (09:51)
[2019-01-13 11:42] LABS: Urine Appearance TURBID; Urine Blood 3+ (NEG); Urine Color RED; Urine Glucose TRACE (NEG); Urine Protein 3+ (NEG)
[2019-01-13 11:47] LABS: Urine Bilirubin NEGATIVE (NEG); Urine Microscopic Reflex ORDER UMIC
[2019-01-13 11:56] LABS: Urine Bacteria 20-50 /HPF (<20); Urine Culture Reflex Order REFLEXED; Urine RBC TNTC /HPF (NONE SEEN)
--- NOTE | 2019-01-13 12:03 | ER ---
Nurse's Notes [facility] Name: Marta Lawson Age: 23 yrs Sex: Female : 1995 Arrival Date: 01/13/2019 Time: 09:23 Bed 6 Private MD: None, None Diagnosis: Acute upper respiratory infection, unspecified Presentation: 01/13 09:34 Presenting complaint: Patient states: R ear pain, N/V, cough and fever that began last ss night. Transition of care: patient was not received from another setting of care. Onset of symptoms was January 12, 2019. Risk Assessment: Do you want to hurt yourself or someone else? Patient reports no desire to harm self or others. Initial Sepsis Screen: Does the patient meet any 2 criteria? No. Patient's initial sepsis screen is negative. Does the patient have a suspected source of infection? No. Patient's initial sepsis screen is negative. Care prior to arrival: None. 09:34 Method Of Arrival: Ambulatory ss 09:34 Acuity: ROSEMARY 3 ss Historical: - Allergies: 09:36 Bees; ss 09:36 pine; ss 09:36 SEAFOOD; ss 09:36 Strawberries; ss 09:36 Sulfa (Sulfonamide Antibiotics); ss - PMHx: 09:36 ADD/ADHD; Anxiety; Bipolar disorder; Depression; PTSD; ss - Immunization history:: Adult Immunizations unknown. - Social history:: Smoking status: Patient uses tobacco products, smokes one-half pack cigarettes per day. - Ebola Screening: : Patient denies exposure to infectious person Patient denies travel to an Ebola-affected area in the 21 days before illness onset. Screenin:35 Abuse screen: Denies threats or abuse. Denies injuries from another. Nutritional hb screening: No deficits noted. Tuberculosis screening: No symptoms or risk factors identified. Fall Risk None identified. Assessment: 09:35 General: Appears in no apparent distress. Behavior is calm, cooperative. Pain: Pain hb currently is 8 out of 10 on a pain scale. Neuro: Level of Consciousness is awake, alert, obeys commands, Oriented to person, place, time, situation. Cardiovascular: Capillary refill < 3 seconds Patient's skin is warm and dry. Respiratory: Airway is patent Trachea midline Respiratory effort is even, unlabored, Respiratory pattern is regular, symmetrical, Breath sounds are clear bilaterally. GI: Abdomen is non-distended, Reports nausea, vomiting. : No signs and/or symptoms were reported regarding the genitourinary system. EENT: Throat is reddened. Derm: Skin is intact, is healthy with good turgor, Skin is pink, warm \T\ dry. Musculoskeletal: No signs and/or symptoms reported regarding the musculoskeletal system. 10:30 General: Appears in no apparent distress. comfortable, Behavior is calm, cooperative. aj1 Neuro: Level of Consciousness is awake, alert, obeys commands, Oriented to person, place, time, situation. Cardiovascular: Patient's skin is warm and dry. Respiratory: Airway is patent Respiratory effort is even, unlabored, Respiratory pattern is regular, symmetrical. Derm: Skin is pink, warm \T\ dry. normal. Musculoskeletal: No signs and/or symptoms reported regarding the musculoskeletal system. Circulation, motion, and sensation intact. 11:30 Reassessment: Patient appears in no apparent distress at this time. No changes from aj1 previously documented assessment. Patient and/or family updated on plan of care and expected duration. Pain level reassessed. Patient is alert, oriented x 3, equal unlabored respirations, skin warm/dry/pink. 12:30 Reassessment: Patient and/or family updated on plan of care and expected duration. Pain aj1 level reassessed. General: Appears in no apparent distress. comfortable, Behavior is calm, cooperative. Neuro: Level of Consciousness is awake, alert, obeys commands, Oriented to person, place, time, situation. Cardiovascular: Patient's skin is warm and dry. Respiratory: Airway is patent Respiratory effort is even, unlabored, Respiratory pattern is regular, symmetrical. Derm: Skin is pink, warm \T\ dry. normal. Musculoskeletal: Circulation, motion, and sensation intact. 13:20 Reassessment: Patient appears in no apparent distress at this time. No changes from aj1 previously documented assessment. Patient and/or family updated on plan of care and expected duration. Pain level reassessed. Patient is alert, oriented x 3, equal unlabored respirations, skin warm/dry/pink. Vital Signs: 09:36 BP 116 / 81; Pulse 104; Resp 16; Temp 98.4(TE); Pulse Ox 99% on R/A; Weight 63.5 kg; ss Height 5 ft. 0 in. (152.40 cm); Pain 8/10; 10:30 BP 102 / 71; Pulse 16; Resp 72; Pulse Ox 98% on R/A; dh3 12:58 BP 99 / 67; Pulse 83; Resp 16; Pulse Ox 99% on R/A; dh3 09:36 Body Mass Index 27.34 (63.50 kg, 152.40 cm) ED Course: 09:23 Patient arrived in ED. mr 09:23 None, None is Private Physician. mr 09:32 [facility] Apple [facility]C [facility]. kb 09:32 Charly Dozier MD is Attending Physician. kb 09:35 Triage completed. ss 09:35 Patient has correct armband on for positive identification. Bed in low position. Call light in reach. Side rails up X 1. 09:36 Arm band placed on right wrist. ss 09:38 Christie Ashton, RN is Primary Nurse. hb 12:55 No provider procedures requiring assistance completed. Patient did not have IV access aj1 during this emergency room visit. Administered Medications: 09:45 Drug: Zofran 4 mg Route: PO; hb Outcome: 12:03 Discharge ordered by . kb 13:21 Discharged to home ambulatory. aj1 13:21 Condition: good 13:21 Discharge instructions given to patient, Instructed on discharge instructions, follow up and referral plans. medication usage, Demonstrated understanding of instructions, follow-up care, medications, Prescriptions given X 1. 13:21 Patient left the ED. aj1 Signatures: Marlys Apple FNP-C FNP-Ckb Johnson, Angela, RN RN [facility] Janene Lozano Lia Kelsey RN RN Christie Ashton, ASIF GOLD Skylar Lynn [facility]
--- NOTE | 2019-01-13 12:04 | EDPHYS ---
Physician Documentation [facility] Name: Marta Lawson Age: 23 yrs Sex: Female : 1995 Arrival Date: 01/13/2019 Time: 09:23 Bed 6 Private MD: None, None ED Physician Charly Dozier HPI: 01/13 10:29 This 23 yrs old Female presents to ER via Ambulatory with complaints of kb Fever, Vomiting. 10:29 The patient or guardian reports cough, that is intermittent, described as mild, with no kb sputum, flu symptoms. Onset: The symptoms/episode began/occurred yesterday. Severity of symptoms: At their worst the symptoms were moderate, in the emergency department the symptoms are unchanged. Modifying factors: The symptoms are alleviated by nothing, the symptoms are aggravated by nothing. Associated signs and symptoms: Pertinent positives: earache, fever, nausea, vomiting. The patient has not experienced similar symptoms in the past. The patient has not recently seen a physician. Historical: - Allergies: 09:36 Bees; ss 09:36 pine; ss 09:36 SEAFOOD; ss 09:36 Strawberries; ss 09:36 Sulfa (Sulfonamide Antibiotics); ss - PMHx: 09:36 ADD/ADHD; Anxiety; Bipolar disorder; Depression; PTSD; ss - Immunization history:: Adult Immunizations unknown. - Social history:: Smoking status: Patient uses tobacco products, smokes one-half pack cigarettes per day. - Ebola Screening: : Patient denies exposure to infectious person Patient denies travel to an Ebola-affected area in the 21 days before illness onset. ROS: 10:27 Neck: Negative for injury, pain, and swelling, Cardiovascular: Negative for chest pain, kb palpitations, and edema, Back: Negative for injury and pain, : Negative for injury, bleeding, discharge, and swelling, MS/Extremity: Negative for injury and deformity, Skin: Negative for injury, rash, and discoloration, Neuro: Negative for headache, weakness, numbness, tingling, and seizure. 10:27 Constitutional: Positive for fatigue, fever, malaise, Negative for body aches, chills, poor PO intake, weight loss. 10:27 ENT: Positive for ear pain. 10:27 Respiratory: Positive for cough, Negative for dyspnea on exertion, hemoptysis, orthopnea, pleurisy, shortness of breath, sputum production, wheezing. Exam: 10:27 Constitutional: This is a well developed, well nourished patient who is awake, alert, kb and in no acute distress. Head/Face: Normocephalic, atraumatic. ENT: Nares patent. No nasal discharge, no septal abnormalities noted. Tympanic membranes are normal and external auditory canals are clear. Oropharynx with no redness, swelling, or masses, exudates, or evidence of obstruction, uvula midline. Mucous membranes moist. Neck: Trachea midline, no thyromegaly or masses palpated, and no cervical lymphadenopathy. Supple, full range of motion without nuchal rigidity, or vertebral point tenderness. No Meningismus. Chest/axilla: Normal chest wall appearance and motion. Nontender with no deformity. No lesions are appreciated. Cardiovascular: Regular rate and rhythm with a normal S1 and S2. No gallops, murmurs, or rubs. Normal PMI, no JVD. No pulse deficits. Respiratory: Lungs have equal breath sounds bilaterally, clear to auscultation and percussion. No rales, rhonchi or wheezes noted. No increased work of breathing, no retractions or nasal flaring. Abdomen/GI: Soft, non-tender, with normal bowel sounds. No distension or tympany. No guarding or rebound. No evidence of tenderness throughout. Skin: Warm, dry with normal turgor. Normal color with no rashes, no lesions, and no evidence of cellulitis. MS/ Extremity: Pulses equal, no cyanosis. Neurovascular intact. Full, normal range of motion. Neuro: Awake and alert, GCS 15, oriented to person, place, time, and situation. Cranial nerves II-XII grossly intact. Motor strength 5/5 in all extremities. Sensory grossly intact. Cerebellar exam normal. Normal gait. Vital Signs: 09:36 BP 116 / 81; Pulse 104; Resp 16; Temp 98.4(TE); Pulse Ox 99% on R/A; Weight 63.5 kg; ss Height 5 ft. 0 in. (152.40 cm); Pain 8/10; 10:30 BP 102 / 71; Pulse 16; Resp 72; Pulse Ox 98% on R/A; dh3 12:58 BP 99 / 67; Pulse 83; Resp 16; Pulse Ox 99% on R/A; dh3 09:36 Body Mass Index 27.34 (63.50 kg, 152.40 cm) ss MDM: 09:32 Patient medically screened. kb 10:28 Data reviewed: vital signs, nurses notes. Data interpreted: Pulse oximetry: on room air kb is 99 %. Interpretation: normal. 10:30 Counseling: I had a detailed discussion with the patient and/or guardian regarding: the kb historical points, exam findings, and any diagnostic results supporting the discharge/admit diagnosis, lab results, the need for outpatient follow up, a family practitioner, to return to the emergency department if symptoms worsen or persist or if there are any questions or concerns that arise at home. 01/13 09:36 Order name: Flu; Complete Time: 10:10 kb 01/13 09:36 Order name: Strep; Complete Time: 10:00 kb 01/13 10:01 Order name: Throat Culture [facility] 01/13 11:21 Order name: UA; Complete Time: 12:02 em1 01/13 11:49 Order name: Urine Microscopic Only; Complete Time: 12:02 [facility] 01/13 11:57 Order name: Urine Culture [facility] 01/13 10:11 Order name: Urine Dipstick-Ancillary (obtain specimen); Complete Time: 11:22 kb 01/13 10:27 Order name: PO challenge; Complete Time: 11:58 kb Administered Medications: 09:45 Drug: Zofran 4 mg Route: PO; hb Disposition: 13:35 Co-signature as Attending Physician, Charly Dozier MD I agree with the assessment and kdr plan of care. Disposition: 01/13/19 12:03 Discharged to Home. Impression: Acute upper respiratory infection, unspecified. - Condition is Stable. - Discharge Instructions: Upper Respiratory Infection, Adult, [id number], Viral Respiratory Infection, [id number]. - Prescriptions for Zofran 4 mg Oral Tablet - take 1 tablet by ORAL route every 6 hours As needed; 20 tablet. - Medication Reconciliation Form, Thank You Letter, Antibiotic Education, Prescription Opioid Use, Work release form form. - Follow up: Private Physician; When: 2 - 3 days; Reason: Recheck today's complaints, Continuance of care, Re-evaluation by your physician. Follow up: Emergency Department; When: As needed; Reason: Worsening of condition. Signatures: Dispatcher [employer] [facility] Marlys Apple, UNIT SECRETARY-C UNIT SECRETARY-Ckb Keisha Baker, RN RN aj1 Charly Dozier MD MD [facility] Lia Kelsey RN RN ss Christie Ashton, ASIF RN Corrections: (The following items were deleted from the chart) 13:21 12:03 01/13/2019 12:03 Discharged to Home. Impression: Acute upper respiratory aj1 infection, unspecified. Condition is Stable. Discharge Instructions: Upper Respiratory Infection, Adult, [id number], Viral Respiratory Infection, Cohb-Tk-Snoi. Prescriptions for Zofran 4 mg Oral Tablet - take 1 tablet by ORAL route every 6 hours As needed; 20 tablet. and Forms are Medication Reconciliation Form, Thank You Letter, Antibiotic Education, Prescription Opioid Use. Follow up: Private Physician; When: 2 - 3 days; Reason: Recheck today's complaints, Continuance of care, Re-evaluation by your physician. Follow up: Emergency Department; When: As needed; Reason: Worsening of condition. kb
[2019-01-13 13:49] VITALS: TEMP 98.4
[2019-01-13 13:59] VITALS: BP 99/67; O2SAT 99
== END 2019-01-13 13:21 | disposition home or self-care (01) ==
LOC: ER 09:19
DX: J06.9 Acute upper respiratory infection, unspecified (principal); F90.9 Attention-deficit hyperactivity disorder, unspecified type; F31.9 Bipolar disorder, unspecified; F32.9 Major depressive disorder, single episode, unspecified; F43.10 Post-traumatic stress disorder, unspecified; F17.210 Nicotine dependence, cigarettes, uncomplicated; Z91.030 Bee allergy status; Z91.013 Allergy to seafood; Z88.2 Allergy status to sulfonamides; Z91.018 Allergy to other foods
CPT/HCPCS: 81003; 81015; 87070; 87077; 87081; 87086; 87088; 87186; 87804; 99283

== ENCOUNTER 2019-03-18 07:33 | Emergency (ER) | payer SELFPAY ==
--- OUTSIDE RECORDS SUMMARY | 2019-03-18 07:35 | XMS REPORT ---
:1995 [facility] Address [address] [place] [address] Dr. Chairez [address] [place] [id number] Care Team Providers Name Role Phone Unavailable Unavailable Unavailable Problems This patient has no known problems. Allergies, Adverse Reactions, Alerts This patient has no known allergies or adverse reactions. Medications This patient has no known medications.
[2019-03-18 08:11] LABS: Absolute Lymphocytes (CBC) 2.3 K/uL (0.7-4.9); Absolute Monocytes 0.6 K/uL (0.1-1.3); Basophils % 0.6 % (0-1.3); Eosinophils % 1.6 % (0-4.4); Hematocrit 39.9 % (36.0-45.0); Lymphocytes % 28.3 % (15.3-44.8); MPV 8.8 fL (7.6-11.3); Monocytes % 7.5 % (3.3-12.3); RBC Red Blood Cell Count 4.23 M/uL (3.86-4.86)
[2019-03-18 08:26] LABS: ALT/SGPT 46 U/L (12-78); AST/SGOT 23 U/L (15-37); Albumin 3.9 g/dL (3.4-5.0); Alkaline Phosphatase 86 U/L (45-117); BUN Blood Urea Nitrogen 13 mg/dL (7-18); Bicarbonate 26 mmol/L (21-32); Bilirubin Direct 0.1 mg/dL (0-0.2); Bilirubin Total 0.4 mg/dL (0.2-1.0); Glucose Level 93 mg/dL (74-106); Lipase 139 U/L (73-393); Potassium 3.8 mmol/L (3.5-5.1); Protein, Total 7.3 g/dL (6.4-8.2); Sodium Level 141 mmol/L (136-145)
[2019-03-18 08:32] LABS: Urine Blood 2+ (NEG); Urine Glucose NEGATIVE (NEG); Urine Protein NEGATIVE (NEG)
[2019-03-18 08:32] LABS: Urine Bacteria >50 /HPF (<20); Urine Culture Reflex Order REFLEXED
--- NOTE | 2019-03-18 09:15 | RAD REPORT ---
EXAM DESCRIPTION: CTAbdomen Pelvis W Contrast - 03/18/2019 8:56 am CLINICAL HISTORY: Abdominal pain. IV contrast only;Abd pain COMPARISON: CT ABD PELVIS W CONTRAST dated 09/25/2015; CT ABD PELVIS W CONTRAST dated 08/07/2014; CT A BD PELVIS W CONTRAST dated 12/11/2013; CT ABD PELVIS W CONTRAST dated 07/02/2013 TECHNIQUE: Biphasic CT imaging of the abdomen and pelvis was performed with 100 ml non-ionic IV cont rast. All CT scans are performed using dose optimization technique as appropriate and may include automated exposure control or mA/KV adjustment according to patient size. FINDINGS: The lung bases are clear. The liver, spleen, pancreas, adrenal glands and kidneys are within normal limits. No bowel obstruction, free air, intra-abdominal free fluid or abscess. The appendix is normal. No e vidence of significant lymphadenopathy. Trace pelvic free fluid. No suspicious bony findings. IMPRESSION: No acute intra-abdominal or pelvic finding. Trace pelvic free fluid, likely physiologic.
--- NOTE | 2019-03-18 09:18 | EDPHYS ---
Physician Documentation [facility] Name: Marta Lawson Age: 23 yrs Sex: Female : 1995 Arrival Date: 03/18/2019 Time: 07:35 Bed 20 Private MD: ED Physician Familia Tolliver HPI: 03/18 07:41 This 23 yrs old Female presents to ER via Unassigned with complaints of rn Abdominal Pain, Nausea/Vomiting. 07:41 The patient presents to the emergency department with nausea, vomiting, abdominal pain, rn of the suprapubic area. Onset: The symptoms/episode began/occurred 2 day(s) ago. Possible causes: unknown. The symptoms are aggravated by movement, pressure, The symptoms are alleviated by nothing. Associated signs and symptoms: Pertinent positives: abdominal pain, anorexia, nausea, vomiting. Severity of symptoms: At their worst the symptoms were moderate in the emergency department the symptoms are unchanged. The patient has experienced similar episodes in the past. REports lower abd pain, assoc with nausea/vomiting, no diarrhea, + anorexia, reports 2 recent visits to other ER and had negative CT and u/s that showed ovarian cyst 2 weeks ago, reports pain is different, constant, worse with movement and touching abdomen, + chills. . RECEPTION AGENT: 07:44 LMP 03/16/2019 Historical: - Allergies: 07:48 Bees; hj 07:48 pine; hj 07:48 SEAFOOD; hj 07:48 Strawberries; hj 07:48 Sulfa (Sulfonamide Antibiotics); hj - Home Meds: 07:48 None [Active]; hj - PMHx: 07:48 ADD/ADHD; Anxiety; Bipolar disorder; Depression; PTSD; hj - PSHx: 07:48 None; hj - Immunization history:: Adult Immunizations up to date. - Social history:: Smoking status: Patient uses tobacco products, Patient/guardian denies using alcohol. - Family history:: not pertinent. - Ebola Screening: : Patient negative for fever greater than or equal to 101.5 degrees Fahrenheit, and additional compatible Ebola Virus Disease symptoms Patient denies exposure to infectious person Patient denies travel to an Ebola-affected area in the 21 days before illness onset. - Hospitalizations: : No recent hospitalization is reported. ROS: 07:43 Constitutional: + chills Eyes: Negative for injury, pain, redness, and discharge, Neck: rn Negative for injury, pain, and swelling, Cardiovascular: Negative for chest pain, palpitations, and edema, Respiratory: Negative for shortness of breath, cough, wheezing, and pleuritic chest pain, Abdomen/GI: + abd pain/nausea/vomiting Back: Negative for injury and pain, : Negative for injury, bleeding, discharge, and swelling, MS/Extremity: Negative for injury and deformity, Skin: Negative for injury, rash, and discoloration, Neuro: Negative for headache, weakness, numbness, tingling, and seizure. Exam: 07:43 Constitutional: This is a well developed, well nourished patient who is awake, alert, rn appears uncomfortable Head/Face: Normocephalic, atraumatic. Eyes: Pupils equal round and reactive to light, extra-ocular motions intact. Lids and lashes normal. Conjunctiva and sclera are non-icteric and not injected. Cornea within normal limits. Periorbital areas with no swelling, redness, or edema. ENT: MMM Cardiovascular: Regular rate and rhythm. No pulse deficits. Respiratory: Lungs have equal breath sounds bilaterally, clear to auscultation. No increased work of breathing, no retractions or nasal flaring. Abdomen/GI: soft, + suprapubic tenderness, no rebound, no masses Skin: Warm, dry with normal turgor. Normal color with no rashes, no lesions, and no evidence of cellulitis. MS/ Extremity: Pulses equal, no cyanosis. Neurovascular intact. Full, normal range of motion. Equal circumference. Neuro: Awake and alert, GCS 15, oriented to person, place, time, and situation. Cranial nerves II-XII grossly intact. Motor strength 5/5 in all extremities. Sensory grossly intact. Cerebellar exam normal. Normal gait. Vital Signs: 07:44 BP 113 / 79; Pulse 100; Resp 18; Temp 98.3(O); Pulse Ox 100% on R/A; Weight 65.77 kg; hj Height 5 ft. 0 in. (152.40 cm); Pain 7/10; 08:32 BP 120 / 78; Pulse 69; Resp 18; Pulse Ox 100% on R/A; hj 09:35 BP 118 / 75; Pulse 70; Resp 18; Pulse Ox 100% on R/A; 07:44 Body Mass Index 28.32 (65.77 kg, 152.40 cm) MDM: 07:36 Patient medically screened. rn 09:16 Differential diagnosis: Nonspecific abd pain, gastritis, appendicitis, diverticulitis, rn viral gastroenteritis, gastroenteritis. Data reviewed: vital signs, nurses notes, lab test result(s), radiologic studies, CT scan, and as a result, I will discharge patient. Counseling: I had a detailed discussion with the patient and/or guardian regarding: the historical points, exam findings, and any diagnostic results supporting the discharge/admit diagnosis, lab results, radiology results, the need for outpatient follow up, to return to the emergency department if symptoms worsen or persist or if there are any questions or concerns that arise at home. Response to treatment: the patient's symptoms have mildly improved after treatment, and as a result, I will discharge patient. Special discussion: Based on the patient's Hx, exam, and Dx evaluation, there is no indication for emergent surgery or inpatient Tx. It is understood by the patient/guardian that if the Sx's persist or worsen they need to return immediately for re-evaluation. I discussed with the patient/guardian in detail that at this point there is no indication for admission to the hospital. It is understood, however, that if the symptoms persist or worsen the patient needs to return immediately for re-evaluation. 03/18 07:41 Order name: Basic Metabolic Panel; Complete Time: 08:39 03/18 07:41 Order name: CBC with Diff; Complete Time: 08:39 03/18 07:41 Order name: Hepatic Function; Complete Time: 08:39 03/18 07:41 Order name: Lipase; Complete Time: 08:39 03/18 07:41 Order name: Urine Microscopic Only; Complete Time: 08:39 03/18 07:43 Order name: Flu; Complete Time: 08:39 03/18 07:41 Order name: IV Saline Lock; Complete Time: 08:03/18 07:41 Order name: Labs collected and sent; Complete Time: 08:03/18 07:41 Order name: Urine Test (obtain specimen); Complete Time: 08: rn 03/18 07:41 Order name: Urine Dipstick-Ancillary (obtain specimen); Complete Time: 08:02 08:06 Order name: Urine Dipstick--Ancillary (enter results); Complete Time: 08:39 eb 03/18 08:06 Order name: Urine --Ancillary (enter results); Complete Time: 08:39 eb 03/18 08:11 Order name: CT Abd/Pelvis - W/Contrast; Complete Time: 09:16 rn 03/18 08:34 Order name: Urine Culture EDMS Administered Medications: No medications were administered Disposition: 03/18/19 09:17 Discharged to Home. Impression: Lower abdominal pain, unspecified, Urinary tract infection, site not specified. - Condition is Stable. - Discharge Instructions: Abdominal Pain, Adult, Urinary Tract Infection, Adult, [id number]. - Prescriptions for Macrobid 100 mg Oral Capsule - take 1 capsule by ORAL route every 12 hours for 7 days; 14 capsule. - Medication Reconciliation Form, Thank You Letter, Antibiotic Education, Prescription Opioid Use, Work release form form. - Follow up: Private Physician; When: As needed; Reason: Recheck today's complaints, Re-evaluation by your physician. - Problem is an ongoing problem. - Symptoms have improved. Signatures: Dispatcher [employer] EDMS Familia Tolliver MD MD rn Joaquin, Henry, RN RN hj Corrections: (The following items were deleted from the chart) 09:17 09:17 03/18/2019 09:17 Discharged to Home. Impression: Lower abdominal pain, rn unspecified. Condition is Stable. Forms are Medication Reconciliation Form, Thank You Letter, Antibiotic Education, Prescription Opioid Use. Follow up: Private Physician; When: As needed; Reason: Recheck today's complaints, Re-evaluation by your physician. Problem is an ongoing problem. Symptoms have improved. rn 09:45 09:17 03/18/2019 09:17 Discharged to Home. Impression: Lower abdominal pain, hj unspecified; Urinary tract infection, site not specified. Condition is Stable. Forms are Medication Reconciliation Form, Thank You Letter, Antibiotic Education, Prescription Opioid Use. Follow up: Private Physician; When: As needed; Reason: Recheck today's complaints, Re-evaluation by your physician. Problem is an ongoing problem. Symptoms have improved. rn
--- NOTE | 2019-03-18 09:18 | ER ---
Nurse's Notes [facility] Name: Marta Lawson Age: 23 yrs Sex: Female : 1995 Arrival Date: 03/18/2019 Time: 07:35 Bed 20 Private MD: Diagnosis: Lower abdominal pain, unspecified;Urinary tract infection, site not specified Presentation: 03/18 07:42 Presenting complaint: Patient states: karo been to [facility] several times his month for my stomach ache, they told me i had gastritis and ovarian cyst; for the past 2 days, i ve been sick, nausea and vomiting, reports constipation; denies fever; reports night sweats;. Transition of care: patient was not received from another setting of care. Onset of symptoms. Risk Assessment: Do you want to hurt yourself or someone else? Patient reports no desire to harm self or others. Initial Sepsis Screen: Does the patient meet any 2 criteria? No. Patient's initial sepsis screen is negative. Does the patient have a suspected source of infection? No. Patient's initial sepsis screen is negative. Care prior to arrival: None. 07:42 Method Of Arrival: Ambulatory 07:42 Acuity: ROSEMARY 3 hj Triage Assessment: 07:46 General: Appears in no apparent distress. uncomfortable, Behavior is calm, cooperative, hj appropriate for age. Pain: Complains of pain in suprapubic area. GI: Reports lower abdominal pain, nausea, vomiting. 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 - Social history:: Smoking status: Patient uses tobacco products, Patient/guardian denies using alcohol. - Family history:: not pertinent. - Ebola Screening: : Patient negative for fever greater than or equal to 101.5 degrees Fahrenheit, and additional compatible Ebola Virus Disease symptoms Patient denies exposure to infectious person Patient denies travel to an Ebola-affected area in the 21 days before illness onset. - Hospitalizations: : No recent hospitalization is reported. Screenin:45 Abuse screen: Denies threats or abuse. Denies injuries from another. Nutritional hj screening: No deficits noted. Tuberculosis screening: No symptoms or risk factors identified. Fall Risk None identified. Assessment: 07:46 GI: Bowel sounds present X 4 quads. Abd is soft and non tender. hj 07:46 General: Appears in no apparent distress. uncomfortable, Behavior is calm, cooperative, hj appropriate for age. Pain: Complains of pain in suprapubic area. Neuro: Level of Consciousness is awake, alert, obeys commands, Oriented to person, place, time, situation, Appropriate for age. Cardiovascular: Capillary refill < 3 seconds Patient's skin is warm and dry. Respiratory: Airway is patent Respiratory effort is even, unlabored, Respiratory pattern is regular, symmetrical. : No signs and/or symptoms were reported regarding the genitourinary system. EENT: No signs and/or symptoms were reported regarding the EENT system. Derm: No signs and/or symptoms reported regarding the dermatologic system. Musculoskeletal: No signs and/or symptoms reported regarding the musculoskeletal system. 08:49 Reassessment: wheeled to CT:. hj 09:34 Reassessment: for D/C;. hj Vital Signs: 07:44 BP 113 / 79; Pulse 100; Resp 18; Temp 98.3(O); Pulse Ox 100% on R/A; Weight 65.77 kg; hj Height 5 ft. 0 in. (152.40 cm); Pain 7/10; 08:32 BP 120 / 78; Pulse 69; Resp 18; Pulse Ox 100% on R/A; hj 09:35 BP 118 / 75; Pulse 70; Resp 18; Pulse Ox 100% on R/A; hj 07:44 Body Mass Index 28.32 (65.77 kg, 152.40 cm) hj ED Course: 07:35 Patient arrived in ED. as 07:35 Familia Tolliver MD is Attending Physician. rn 07:42 Chirag Nuñez RN is Primary Nurse. hj 07:44 Triage completed. hj 07:46 Arm band placed on right wrist. hj 07:48 Patient has correct armband on for positive identification. Placed in gown. Bed in low hj position. Call light in reach. Side rails up X 1. 08:08 Initial lab(s) drawn, by md, sent to lab. Urine collected: clean catch specimen, clear, [facility] Flu and/or RSV swab sent to lab. Inserted saline lock: 22 gauge antecubital area, using aseptic technique. Blood collected. 08:08 Urine --Ancillary (enter results) Sent. 5 08:08 Urine Dipstick--Ancillary (enter results) Sent. [facility] 08:08 Flu Sent. 5 08:08 Urine Microscopic Only Sent. 5 08:08 Basic Metabolic Panel Sent. 5 08:08 CBC with Diff Sent. [facility] 08:09 Hepatic Function Sent. [facility] 08:09 Lipase Sent. [facility] 08:54 CT completed. Patient tolerated procedure well. Patient moved to CT via wheelchair. Patient moved back from CT. 08:57 CT Abd/Pelvis - W/Contrast In Process Unspecified. EDMS 09:34 No provider procedures requiring assistance completed. IV discontinued, intact, hj bleeding controlled, No redness/swelling at site. Pressure dressing applied. Administered Medications: No medications were administered Outcome: 09:17 Discharge ordered by . rn 09:35 Discharged to home ambulatory. 09:35 Condition: stable 09:35 Discharge instructions given to patient, Instructed on discharge instructions, follow up and referral plans. medication usage, Demonstrated understanding of instructions, follow-up care, medications, Prescriptions given X 1. 09:45 Patient left the ED. Signatures: Dispatcher [employer] Aby Hall Amelia as Nieto, Roman, MD MD rn Joaquin, Henry, RN RN hj Martinez, Maria [facility]
[2019-03-18 09:58] VITALS: TEMP 98.3; O2SAT 100
[2019-03-18 10:00] VITALS: BP 118/75
== END 2019-03-18 09:45 | disposition home or self-care (01) ==
LOC: ER 07:33
DX: N39.0 Urinary tract infection, site not specified (principal); F41.9 Anxiety disorder, unspecified; F31.9 Bipolar disorder, unspecified; F32.9 Major depressive disorder, single episode, unspecified; F43.10 Post-traumatic stress disorder, unspecified; F90.9 Attention-deficit hyperactivity disorder, unspecified type; Z72.0 Tobacco use; Z91.030 Bee allergy status; Z91.013 Allergy to seafood; Z88.2 Allergy status to sulfonamides; Z91.018 Allergy to other foods
CPT/HCPCS: 36415; 74177; 80048; 80076; 81003; 81015; 81025; 83690; 85025; 87086; 87088; 87804; 99284; Q9967

== ENCOUNTER 2019-09-06 20:32 | Emergency (ER) | payer SELFPAY ==
[2019-09-06] MEDS ORDERED: NA CHLORIDE 0.9% 1,000 ML ONE (21:53)
[2019-09-06] MEDS ORDERED: FENTANYL CITR 100 MCG/2 ML ONE (21:53)
[2019-09-06 22:31] LABS: Basophils % 0.8 % (0-1.3); Hematocrit 39.4 % (36.0-45.0); Lymphocytes % 31.1 % (15.3-44.8); RBC Red Blood Cell Count 4.16 M/uL (3.86-4.86)
[2019-09-06 22:45] LABS: ALT/SGPT 20 U/L (12-78); AST/SGOT 12 U/L (15-37); Albumin 3.7 g/dL (3.4-5.0); Alkaline Phosphatase 86 U/L (45-117); BUN Blood Urea Nitrogen 10 mg/dL (7-18); Bicarbonate 25 mmol/L (21-32); Bilirubin Direct < 0.1 mg/dL (0-0.2); Bilirubin Total 0.2 mg/dL (0.2-1.0); Glucose Level 86 mg/dL (74-106); Lipase 156 U/L (73-393); Magnesium 2.2 mg/dL (1.8-2.4); NT PRO-BNP 12 pg/mL (<125); Potassium 4.1 mmol/L (3.5-5.1); Sodium Level 142 mmol/L (136-145); Troponin (Emerg Dept Use Only) < 0.02 ng/mL (0.0-0.045)
[2019-09-06] MEDS ORDERED: KETOROLAC 30 MG/ML INJ ONE (23:32)
[2019-09-06 23:43] LABS: Urine Blood 1+ (NEG); Urine Glucose NEGATIVE (NEG); Urine Protein NEGATIVE (NEG)
[2019-09-06 23:52] LABS: Protime INR 0.86
--- NOTE | 2019-09-07 01:22 | ER ---
Nurse's Notes [facility] Name: Marta Lawson Age: 24 yrs Sex: Female : 1995 Arrival Date: 09/06/2019 Time: 20:37 Bed 14 Private MD: Diagnosis: Pain in thoracic spine;Chest pain, unspecified Presentation: 09/06 20:47 Presenting complaint: Patient states: back pain that radiates to right ribs and right ak1 abd area X2 days. Transition of care: patient was not received from another setting of care. Onset of symptoms is unknown. Risk Assessment: Do you want to hurt yourself or someone else? Patient reports no desire to harm self or others. Initial Sepsis Screen: Does the patient meet any 2 criteria? No. Patient's initial sepsis screen is negative. Does the patient have a suspected source of infection? No. Patient's initial sepsis screen is negative. Care prior to arrival: None. 20:47 Method Of Arrival: Ambulatory ak1 20:47 Acuity: ROSEMARY 3 ak1 Triage Assessment: 20:49 General: Appears uncomfortable. ak1 21:12 General: Behavior is calm, cooperative, appropriate for age. 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 - Social history:: Smoking status: Patient uses tobacco products, smokes one pack cigarettes per day. - Ebola Screening: : No symptoms or risks identified at this time. Screenin:12 Abuse screen: Denies threats or abuse. Denies injuries from another. Nutritional wh screening: No deficits noted. Tuberculosis screening: No symptoms or risk factors identified. Fall Risk None identified. Assessment: 21:12 General: Appears in no apparent distress. uncomfortable, Behavior is calm, cooperative, wh appropriate for age. Pain: Complains of pain in back Pain radiates to rib cage Pain currently is 10 out of 10 on a pain scale. Quality of pain is described as aching, Pain began This morning Aggravated by increased activity. Neuro: Level of Consciousness is awake, alert, obeys commands. Cardiovascular: Heart tones S1 S2. Respiratory: Airway is patent Respiratory effort is even, unlabored, Respiratory pattern is regular, symmetrical, Breath sounds are clear bilaterally. GI: Abdomen is flat, non-distended. : No signs and/or symptoms were reported regarding the genitourinary system. EENT: No signs and/or symptoms were reported regarding the EENT system. Derm: Skin is intact, is healthy with good turgor, Skin is pink, warm \T\ dry. normal. Musculoskeletal: Circulation, motion, and sensation intact. 22:00 Reassessment: Patient appears in no apparent distress at this time. No changes from fu previously documented assessment. Patient is alert, oriented x 3, equal unlabored respirations, skin warm/dry/pink. 23:00 Reassessment: Patient appears in no apparent distress at this time. No changes from fu previously documented assessment. Patient is alert, oriented x 3, equal unlabored respirations, skin warm/dry/pink. 09/07 00:00 Reassessment: Patient appears in no apparent distress at this time. No changes from fu previously documented assessment. Patient is alert, oriented x 3, equal unlabored respirations, skin warm/dry/pink. Patient states feeling better. 01:00 Reassessment: Patient appears in no apparent distress at this time. Patient is alert, fu oriented x 3, equal unlabored respirations, skin warm/dry/pink. Patient states feeling better. pain is relieved with side lying position.. Vital Signs: 09/06 20:46 BP 133 / 92 Standing; Pulse 115; Resp 16; Temp 98.3; Pulse Ox 98% on R/A; Weight 63.5 ak1 kg; Height 5 ft. 0 in. (152.40 cm) (R); Pain 10/10; 21:14 BP 111 / 73; Pulse 88; Resp 18; Pulse Ox 99% on R/A; wh 22:24 BP 109 / 67; Pulse 74; Resp 18; Pulse Ox 98% on R/A; Pain 10/10; fu 09/07 00:00 BP 95 / 64; Pulse 81; Resp 21; Pulse Ox 100% ; Pain 8/10; fu 00:47 BP 98 / 64; Pulse 79; Resp 12; Pulse Ox 99% on R/A; Pain 7/10; fu 09/06 20:46 Body Mass Index 27.34 (63.50 kg, 152.40 cm) ak1 ED Course: 09/06 20:37 Patient arrived in ED. es 20:46 Arm band placed on Patient placed in waiting room, Patient notified of wait time. ak1 20:48 Triage completed. ak1 21:05 Shane Bacon is Primary Nurse. wh 21:12 Patient has correct armband on for positive identification. Bed in low position. Call light in reach. Side rails up X 1. Pulse ox on. NIBP on. 21:36 Bobo Cruz PA is PHCP. cp 21:36 Bobo Cuevas MD is Attending Physician. cp 22:03 Initial lab(s) drawn, by dc, sent to lab. Inserted saline lock: 20 gauge in right fu antecubital area, using aseptic technique. 22:22 XRAY Chest (1 view) In Process Unspecified. 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 Pulse ox on. NIBP on. fu 09/07 00:56 XRAY Thoracic Spine (W/swimmers) In Process Unspecified. EDMS 00:57 Primary Nurse role handed off by Shane Bacon fu 00:57 Papa Mcfarland, RN is Primary Nurse. fu 01:36 No provider procedures requiring assistance completed. IV discontinued, bleeding fu controlled, Pressure dressing applied. Administered Medications: 09/06 22:13 Drug: fentaNYL (PF) 25 mcg Route: IVP; Site: right antecubital; fu 23:00 Follow up: Response: Pain is decreased fu 22:13 Drug: NS 0.9% 1000 ml Route: IV; Rate: 1 bolus; Site: right antecubital; fu 23:38 Drug: TORadol 30 mg Route: IVP; Site: right antecubital; fu 09/07 00:30 Follow up: Response: Pain is decreased fu Outcome: 01:21 Discharge ordered by . cp 01:38 Discharged to home ambulatory. fu 01:38 Condition: improved 01:38 Discharge instructions given to patient, Instructed on discharge instructions, Demonstrated understanding of instructions, Prescriptions given X 3. 01:41 Patient left the ED. fu Signatures: Dispatcher [employer] EDMS Sharona, Nicki es Krenek, Amkenna, RN RN ak1 Bobo Cruz PA PA cp Habalo, Winsy wh Umadhay, Felix RN RN fu Corrections: (The following items were deleted from the chart) 09/06 20:48 20:46 Resp 16bpm; Pulse Ox 98% RA; Temp 98.3F; 63.5 kg; Height 5 ft. 0 in. Reported; ak1 BMI: 27.3; Pain 08/26; ak1
--- NOTE | 2019-09-07 01:22 | EDPHYS ---
Physician Documentation [facility] Name: Marta Lawson Age: 24 yrs Sex: Female : 1995 Arrival Date: 09/06/2019 Time: 20:37 Bed 14 Private MD: ED Physician Bobo Cuevas HPI: 09/06 21:55 This 24 yrs old Female presents to ER via Ambulatory with complaints of Back cp Pain, Sine pain, rib pain. 21:55 The patient presents with pain that is acute, and decreased range of motion. The cp symptoms are located in the thoracic area. Onset: The symptoms/episode began/occurred this morning, at 02:00. 21:55 The pain radiates to the bilateral lower rib area. cp 21:55 Associated signs and symptoms: Pertinent positives: chest pain, Pertinent negatives: cp abdominal pain, fever, headache, incontinence, numbness, weakness. The problem was sustained from unknown cause. Modifying factors: the patient symptoms are aggravated by movement, deep breathing. Severity of symptoms: in the emergency department the symptoms a " 10" out of "10". 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 - Social history:: Smoking status: Patient uses tobacco products, smokes one pack cigarettes per day. - Ebola Screening: : No symptoms or risks identified at this time. ROS: 22:05 Constitutional: Negative for body aches, chills, fever, poor PO intake. cp 22:05 Eyes: Negative for injury, pain, redness, and discharge. cp 22:05 ENT: Negative for drainage from ear(s), ear pain, sore throat, difficulty swallowing, difficulty handling secretions. 22:05 Neck: Negative for pain with movement, pain at rest, stiffness. 22:05 Cardiovascular: Positive for chest pain, of the bilateral lower rib area, Negative for edema, palpitations. 22:05 Respiratory: Positive for shortness of breath, Negative for cough, wheezing. 22:05 Abdomen/GI: Negative for abdominal pain, nausea, vomiting, and diarrhea, constipation. 22:05 Back: Positive for pain at rest, pain with movement, of the thoracic area. 22:05 : Negative for urinary symptoms, flank pain. 22:05 MS/extremity: Negative for injury or acute deformity, decreased range of motion. 22:05 Skin: Negative for cellulitis, rash. 22:05 Neuro: Negative for altered mental status, dizziness, headache, numbness, syncope, weakness. 22:05 All other systems are negative. Exam: 22:10 Constitutional: The patient appears alert, awake, non-diaphoretic, non-toxic, well cp developed, well nourished, in obvious pain, uncomfortable. 22:10 Head/Face: Normocephalic, atraumatic. Eyes: Pupils equal round and reactive to light, cp extra-ocular motions intact. Lids and lashes normal. Conjunctiva and sclera are non-icteric and not injected. Cornea within normal limits. Periorbital areas with no swelling, redness, or edema. ENT: Nares patent. No nasal discharge, no septal abnormalities noted. Tympanic membranes are normal and external auditory canals are clear. Oropharynx with no redness, swelling, or masses, exudates, or evidence of obstruction, uvula midline. Mucous membranes moist. 22:10 Neck: ROM/movement: is normal, is supple, without pain, no range of motions limitations, no nuchal rigidity. 22:10 Chest/axilla: Inspection: normal, Palpation: crepitus, is not appreciated, tenderness, that is severe, of the bilateral lower rib area and below breasts, that partially reproduces the patient's complaints. 22:10 Cardiovascular: Rate: normal, Rhythm: regular, Edema: is not appreciated, JVD: is not appreciated. 22:10 Respiratory: the patient does not display signs of respiratory distress, Respirations: labored breathing, is not present, accessory muscle usage, is absent, shallow respirations, that is moderate, splinting, is not noted, tachypnea, is not appreciated, Breath sounds: bronchial sounds, are not appreciated, decreased breath sounds, are not appreciated, stridor, is not appreciated, wheezing: is not appreciated. 22:10 Abdomen/GI: Inspection: abdomen appears normal, Bowel sounds: active, all quadrants, Palpation: abdomen is soft and non-tender, in all quadrants, rebound tenderness, is not appreciated, voluntary guarding, is not appreciated. 22:10 Back: pain, that is severe, of the thoracic area, ROM is painful, with all movement, CVA tenderness, is absent, Straight leg raises: of both lower extremities does not illicit pain. 22:10 Musculoskeletal/extremity: DVT Exam: No signs of deep vein thrombosis. 22:10 Skin: no rash present. 22:10 Neuro: Orientation: to person, place \\T\\ time. Mentation: is normal, Cerebellar function: is grossly normal, Motor: moves all fours, strength is normal, Sensation: is normal. 22:20 ECG was reviewed by the Attending Physician. cp Vital Signs: 20:46 BP 133 / 92 Standing; Pulse 115; Resp 16; Temp 98.3; Pulse Ox 98% on R/A; Weight 63.5 ak1 kg; Height 5 ft. 0 in. (152.40 cm) (R); Pain 10/10; 21:14 BP 111 / 73; Pulse 88; Resp 18; Pulse Ox 99% on R/A; wh 22:24 BP 109 / 67; Pulse 74; Resp 18; Pulse Ox 98% on R/A; Pain 10/10; fu 09/07 00:00 BP 95 / 64; Pulse 81; Resp 21; Pulse Ox 100% ; Pain 8/10; fu 00:47 BP 98 / 64; Pulse 79; Resp 12; Pulse Ox 99% on R/A; Pain 7/10; fu 09/06 20:46 Body Mass Index 27.34 (63.50 kg, 152.40 cm) ak1 MDM: 09/06 21:41 Patient medically screened. cp 22:00 Differential diagnosis: Basilar Pneumonia Cholelithiasis Fatigue Fracture cp Pyelonephritis ruptured disc, spinal injury, vertebral fracture, pulmonary embolism. 09/07 01:20 Data reviewed: vital signs, nurses notes, lab test result(s), EKG, radiologic studies, cp plain films. 01:20 Test interpretation: by ED physician or midlevel provider: ECG, plain radiologic cp studies, xrays of thoracic spine negative for fracture and chest xray negative for infiltrates. Counseling: I had a detailed discussion with the patient and/or guardian regarding: the historical points, exam findings, and any diagnostic results supporting the discharge/admit diagnosis, lab results, radiology results, the need for outpatient follow up, a family practitioner, to return to the emergency department if symptoms worsen or persist or if there are any questions or concerns that arise at home. Response to treatment: the patient's symptoms have markedly improved after treatment, VSS. Pain improved. Will discharge to home for continued monitoring. 09/06 21:49 Order name: Basic Metabolic Panel; Complete Time: 23:06 cp 09/06 23:06 Interpretation: Normal except: CL 110; GFR 81. cp 09/06 21:49 Order name: CBC with Diff; Complete Time: 23:06 cp 09/06 21:49 Order name: LFT's; Complete Time: 23:06 cp 09/06 21:49 Order name: Magnesium; Complete Time: 23:06 cp 09/06 21:49 Order name: NT PRO-BNP; Complete Time: 23:06 cp 09/06 21:49 Order name: PT-INR; Complete Time: 23:56 cp 09/06 21:49 Order name: Troponin (emerg Dept Use Only); Complete Time: 23:06 cp 09/06 21:49 Order name: XRAY Chest (1 view) cp 09/06 21:49 Order name: D-Dimer; Complete Time: 23:56 cp 09/06 21:49 Order name: Lipase; Complete Time: 23:06 cp 09/06 22:05 Order name: Urine Dipstick--Ancillary (enter results); Complete Time: 23:56 cm6 09/06 22:05 Order name: Urine --Ancillary (enter results); Complete Time: 23:56 cm6 09/06 23:59 Order name: XRAY Thoracic Spine (W/swimmers) cp 09/06 21:49 Order name: EKG; Complete Time: 21:50 cp 09/06 21:49 Order name: Cardiac monitoring; Complete Time: 01:38 cp 09/06 21:49 Order name: EKG - Nurse/Tech; Complete Time: 01:38 cp 09/06 21:49 Order name: IV Saline Lock; Complete Time: 22:14 cp 09/06 21:49 Order name: Labs collected and sent; Complete Time: 01:38 cp 09/06 21:49 Order name: O2 Per Protocol; Complete Time: 01:38 cp 09/06 21:49 Order name: O2 Sat Monitoring; Complete Time: 01:38 cp 09/06 21:49 Order name: Urine Dipstick-Ancillary (obtain specimen); Complete Time: 01:37 cp 09/06 21:49 Order name: Urine Test (obtain specimen); Complete Time: 01:37 cp EC/21 22:20 Rate is 80 beats/min. Rhythm is regular. [place] interval is normal. QRS interval is normal. cp QT interval is normal. Interpreted by me. Reviewed by me. Administered Medications: 22:13 Drug: fentaNYL (PF) 25 mcg Route: IVP; Site: right antecubital; fu 23:00 Follow up: Response: Pain is decreased fu 22:13 Drug: NS 0.9% 1000 ml Route: IV; Rate: 1 bolus; Site: right antecubital; fu 23:38 Drug: TORadol 30 mg Route: IVP; Site: right antecubital; fu 09/07 00:30 Follow up: Response: Pain is decreased fu Disposition: 07:41 Co-signature as Attending Physician, Bobo Cuevas MD I agree with the assessment and giselle plan of care. Disposition: 09/07/19 01:21 Discharged to Home. Impression: Pain in thoracic spine, Chest pain, unspecified. - Condition is Stable. - Discharge Instructions: Back Pain, Adult, Nonspecific Chest Pain. - Prescriptions for Ibuprofen 800 mg Oral Tablet - take 1 tablet by ORAL route every 8 hours As needed take with food; 30 tablet. Cyclobenzaprine 10 mg Oral Tablet - take 1 tablet by ORAL route every 8 hours As needed no driving while taking medication; 20 tablet. Tramadol 50 mg Oral Tablet - take 1 tablet by ORAL route every 8 hours as needed; 12 tablet. - Medication Reconciliation Form, Thank You Letter, Antibiotic Education, Prescription Opioid Use form. - Follow up: Private Physician; When: 2 - 3 days; Reason: Recheck today's complaints. - Problem is new. - Symptoms have improved. Signatures: Dispatcher [employer] Bobo Manzano MD MD cha Krenek, Amber RN RN ak1 Bobo Cruz PA PA cp Umadhay, Felix RN RN fu Corrections: (The following items were deleted from the chart) 01:41 01:21 09/07/2019 01:21 Discharged to Home. Impression: Pain in thoracic spine; Chest fu pain, unspecified. Condition is Stable. Forms are Medication Reconciliation Form, Thank You Letter, Antibiotic Education, Prescription Opioid Use. Follow up: Private Physician; When: 2 - 3 days; Reason: Recheck today's complaints. Problem is new. Symptoms have improved. cp
[2019-09-07 01:45] VITALS: TEMP 98.3
[2019-09-07 01:50] VITALS: BP 98/64; O2SAT 99
--- NOTE | 2019-09-07 07:45 | RAD REPORT ---
EXAM DESCRIPTION: RAD - Chest Single View - 09/06/2019 10:21 pm CLINICAL HISTORY: Back pain, right-sided rib pain COMPARISON: June 2018 TECHNIQUE: AP portable chest image was obtained 2205 hours . FINDINGS: Lungs are clear. Heart and vasculature are normal. No measurable pleural effusion and no p neumothorax. No acute bony abnormality seen. No acute aortic findings suspected. IMPRESSION: No acute cardiopulmonary process. No significant change comparison.
--- NOTE | 2019-09-07 08:28 | RAD REPORT ---
EXAM DESCRIPTION: RAD - Spine Thoracic W/Swimmers - 09/07/2019 12:55 am CLINICAL HISTORY: Thoracic pain extending into the ribcage. COMPARISON: None. FINDINGS: AP & lateral views of the thoracic spine were obtained. Thoracic bodies are normal in heig ht and alignment. There are no acute or destructive bony processes seen. No paraspinal masses are radha ntified. No disc space narrowing. IMPRESSION: Negative thoracic spine examination.
--- NOTE | 2019-09-07 12:12 | EKG ---
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
== END 2019-09-07 01:41 | disposition home or self-care (01) ==
LOC: ER 20:32
DX: R07.9 Chest pain, unspecified (principal); F17.210 Nicotine dependence, cigarettes, uncomplicated; Z91.013 Allergy to seafood; Z91.018 Allergy to other foods; Z91.030 Bee allergy status
CPT/HCPCS: 36415; 71045; 72072; 80048; 80076; 81003; 81025; 83690; 83735; 83880; 84484; 85025; 85379; 85610; 93005; 96374; 96375; 99284; J3010; J7030

== ENCOUNTER 2019-10-20 07:11 | Emergency (ER) | payer SELFPAY ==
[2019-10-20] MEDS ORDERED: METOCLOPRAMIDE 10 MG/2mL INJ ONE (07:37)
[2019-10-20] MEDS ORDERED: NA CHLORIDE 0.9% 1,000 ML ONE (07:38)
[2019-10-20] MEDS ORDERED: DIPHENHYDRAMINE 50 MG/ML VIAL ONE (07:38)
[2019-10-20] MEDS ORDERED: NA CHLORIDE 0.9% 100 ML IV ONE (07:38)
--- NOTE | 2019-10-20 08:50 | EDPHYS ---
Physician Documentation [facility] Name: Marta Lawson Age: 24 yrs Sex: Female : 1995 Arrival Date: 10/20/2019 Time: 07:12 Bed 15 Private MD: ED Physician Jaleel Nicholas HPI: 10/20 08:08 This 24 yrs old Female presents to ER via Ambulatory with complaints of jr8 Headache, Vomiting, Fever. 08:08 The patient complains of pain to the diffuse. The patient describes the headache as jr8 throbbing. Onset: The symptoms/episode began/occurred acutely, today. Associated signs and symptoms: Pertinent positives: vomiting. Severity of symptoms: At its worst the pain was moderate, in the emergency department the pain is unchanged. The patient has not experienced similar symptoms in the past. The patient has not recently seen a physician. Historical: - Allergies: 07:21 Bees; ss 07:21 pine; ss 07:21 SEAFOOD; ss 07:21 Strawberries; ss 07:21 Sulfa (Sulfonamide Antibiotics); ss - Home Meds: 07:21 Tylenol-Codeine #3 300-30 mg oral tab [Active]; ss - PMHx: 07:21 ADD/ADHD; Anxiety; Bipolar disorder; Depression; PTSD; ss - PSHx: 07:21 None; ss - Immunization history:: Adult Immunizations up to date. - Social history:: Smoking status: Patient uses tobacco products, smokes one-half pack cigarettes per day. - Ebola Screening: : Patient denies exposure to infectious person Patient denies travel to an Ebola-affected area in the 21 days before illness onset. ROS: 08:08 Eyes: Negative for injury, pain, redness, and discharge, ENT: Negative for injury, jr8 pain, and discharge, Neck: Negative for injury, pain, and swelling, Cardiovascular: Negative for chest pain, palpitations, and edema, Respiratory: Negative for shortness of breath, cough, wheezing, and pleuritic chest pain, Back: Negative for injury and pain, MS/Extremity: Negative for injury and deformity, Skin: Negative for injury, rash, and discoloration. 08:08 Abdomen/GI: Positive for nausea and vomiting, Negative for abdominal pain, diarrhea, constipation, abdominal cramps, abdominal distension. 08:08 Neuro: Positive for headache. Exam: 08:08 Eyes: Pupils equal round and reactive to light, extra-ocular motions intact. Lids and jr8 lashes normal. Conjunctiva and sclera are non-icteric and not injected. Cornea within normal limits. Periorbital areas with no swelling, redness, or edema. ENT: Nares patent. No nasal discharge, no septal abnormalities noted. Tympanic membranes are normal and external auditory canals are clear. Oropharynx with no redness, swelling, or masses, exudates, or evidence of obstruction, uvula midline. Mucous membranes moist. Neck: Trachea midline, no thyromegaly or masses palpated, and no cervical lymphadenopathy. Supple, full range of motion without nuchal rigidity, or vertebral point tenderness. No Meningismus. Cardiovascular: Regular rate and rhythm with a normal S1 and S2. No gallops, murmurs, or rubs. Normal PMI, no JVD. No pulse deficits. Respiratory: Lungs have equal breath sounds bilaterally, clear to auscultation and percussion. No rales, rhonchi or wheezes noted. No increased work of breathing, no retractions or nasal flaring. Abdomen/GI: Soft, non-tender, with normal bowel sounds. No distension or tympany. No guarding or rebound. No evidence of tenderness throughout. Back: No spinal tenderness. No costovertebral tenderness. Full range of motion. Skin: Warm, dry with normal turgor. Normal color with no rashes, no lesions, and no evidence of cellulitis. MS/ Extremity: Pulses equal, no cyanosis. Neurovascular intact. Full, normal range of motion. Neuro: Awake and alert, GCS 15, oriented to person, place, time, and situation. Cranial nerves II-XII grossly intact. Motor strength 5/5 in all extremities. Sensory grossly intact. Cerebellar exam normal. Normal gait. Vital Signs: 07:21 BP 117 / 83; Pulse 100; Resp 17; Temp 98.2(O); Pulse Ox 99% on R/A; Weight 63.5 kg; ss Height 5 ft. 0 in. (152.40 cm); Pain 9/10; 08:30 BP 112 / 78; Pulse 91; Resp 18; Temp 97.8; Pulse Ox 100% on R/A; ph 07:21 Body Mass Index 27.34 (63.50 kg, 152.40 cm) MDM: 07:14 Patient medically screened. jr8 08:08 Data reviewed: vital signs, nurses notes, and as a result, I will discharge patient. jr8 Data interpreted: Pulse oximetry: on room air is 99 %. Interpretation: normal. Counseling: I had a detailed discussion with the patient and/or guardian regarding: the historical points, exam findings, and any diagnostic results supporting the discharge/admit diagnosis, the need for outpatient follow up, a family practitioner, to return to the emergency department if symptoms worsen or persist or if there are any questions or concerns that arise at home. Response to treatment: the patient's symptoms have markedly improved after treatment, patient is well hydrated. 10/20 07:29 Order name: IV; Complete Time: :54 jr8 Administered Medications: 07:54 Drug: Reglan 10 mg Route: IVP; Site: right antecubital; ph 09:00 Follow up: Response: No adverse reaction; Pain is decreased; Nausea is decreased ph 07:54 Drug: Benadryl 25 mg Route: IVP; Site: right antecubital; ph 09:00 Follow up: Response: No adverse reaction ph 07:54 Drug: NS 0.9% 1000 ml Route: IV; Rate: 1000 ml; Site: right antecubital; ph 09:00 Follow up: Response: No adverse reaction; IV Status: Completed infusion; IV Intake: ph 1000ml Disposition: 18:52 Co-signature as Attending Physician, Jaleel Nicholas MD Signing chart for administrative ps1 purposes. Available for consultation in ED. . Chart complete. Disposition: 10/20/19 08:48 Discharged to Home. Impression: Headache. - Condition is Stable. - Discharge Instructions: Migraine Headache. - Medication Reconciliation Form, Thank You Letter, Antibiotic Education, Prescription Opioid Use, Work release form form. - Follow up: Private Physician; When: 2 - 3 days; Reason: Recheck today's complaints, Continuance of care, Re-evaluation by your physician. - Problem is new. - Symptoms have improved. Signatures: Lia Kelsey RN RN Reza Lott PA PA jr8 Yue Almeida RN RN Jaleel Nicholas MD MD ps1 Corrections: (The following items were deleted from the chart) 09:17 08:48 10/20/2019 08:48 Discharged to Home. Impression: Headache. Condition is Stable. ph Forms are Medication Reconciliation Form, Thank You Letter, Antibiotic Education, Prescription Opioid Use. Follow up: Private Physician; When: 2 - 3 days; Reason: Recheck today's complaints, Continuance of care, Re-evaluation by your physician. Problem is new. Symptoms have improved. jr8
--- NOTE | 2019-10-20 08:50 | ER ---
Nurse's Notes [facility] Name: Marat Lawson Age: 24 yrs Sex: Female : 1995 Arrival Date: 10/20/2019 Time: 07:12 Bed 15 Private MD: Diagnosis: Headache Presentation: 10/20 07:19 Presenting complaint: Patient states: N/V, headaches and shakiness x 2 days. Pt reports ss she had a fever two days ago, but does not have one anymore. Transition of care: patient was not received from another setting of care. Onset of symptoms was October 18, 2019. Risk Assessment: Do you want to hurt yourself or someone else? Patient reports no desire to harm self or others. Initial Sepsis Screen: Does the patient meet any 2 criteria? HR > 90 bpm. Does the patient have a suspected source of infection? No. Patient's initial sepsis screen is negative. Care prior to arrival: None. 07:19 Method Of Arrival: Ambulatory ss 07:19 Acuity: ROSEMARY 3 ss Historical: - Allergies: 07:21 Bees; ss 07:21 pine; ss 07:21 SEAFOOD; ss 07:21 Strawberries; ss 07:21 Sulfa (Sulfonamide Antibiotics); ss - Home Meds: 07:21 Tylenol-Codeine #3 300-30 mg oral tab [Active]; ss - PMHx: 07:21 ADD/ADHD; Anxiety; Bipolar disorder; Depression; PTSD; ss - PSHx: 07:21 None; ss - Immunization history:: Adult Immunizations up to date. - Social history:: Smoking status: Patient uses tobacco products, smokes one-half pack cigarettes per day. - Ebola Screening: : Patient denies exposure to infectious person Patient denies travel to an Ebola-affected area in the 21 days before illness onset. Screenin:00 Abuse screen: Denies threats or abuse. Denies injuries from another. Nutritional ph screening: No deficits noted. Tuberculosis screening: No symptoms or risk factors identified. Fall Risk None identified. Assessment: 07:30 General: Appears in no apparent distress. uncomfortable, slender, well groomed, ph Behavior is calm, cooperative, appropriate for age. Pain: Complains of pain in forehead and left confucianism. Neuro: Level of Consciousness is awake, alert, obeys commands, Oriented to person, place, time, situation, Reports headache in left frontal area. Cardiovascular: Capillary refill < 3 seconds in bilateral fingers Patient's skin is warm and dry. Respiratory: Airway is patent Respiratory effort is even, unlabored, Respiratory pattern is regular, symmetrical. GI: Reports nausea, vomiting, Patient currently denies abdominal pain. Derm: Skin is intact, is healthy with good turgor, Skin is pink, warm \T\ dry. 08:30 Reassessment: Patient appears in no apparent distress at this time. Patient and/or ph family updated on plan of care and expected duration. Pain level reassessed. Patient is alert, oriented x 3, equal unlabored respirations, skin warm/dry/pink. 09:15 Reassessment: Patient appears in no apparent distress at this time. Patient and/or ph family updated on plan of care and expected duration. Pain level reassessed. Patient is alert, oriented x 3, equal unlabored respirations, skin warm/dry/pink. Patient states symptoms have improved. Vital Signs: 07:21 BP 117 / 83; Pulse 100; Resp 17; Temp 98.2(O); Pulse Ox 99% on R/A; Weight 63.5 kg; ss Height 5 ft. 0 in. (152.40 cm); Pain 9/10; 08:30 BP 112 / 78; Pulse 91; Resp 18; Temp 97.8; Pulse Ox 100% on R/A; ph 07:21 Body Mass Index 27.34 (63.50 kg, 152.40 cm) ED Course: 07:12 Patient arrived in ED. as 07:14 Reza Lott PA is PHCP. jr8 07:14 Jaleel Nicholas MD is Attending Physician. jr8 07:20 Triage completed. ss 07:21 Arm band placed on left wrist. ss 07:23 Yue Almeida, ASIF is Primary Nurse. ph 07:37 Inserted saline lock: 22 gauge in right antecubital area, using aseptic technique. dh3 08:00 Patient has correct armband on for positive identification. Bed in low position. Call ph light in reach. Side rails up X 1. Pulse ox on. NIBP on. Door closed. Noise minimized. Lights dimmed. Warm blanket given. 09:15 No provider procedures requiring assistance completed. ph 09:17 IV discontinued, intact, bleeding controlled, No redness/swelling at site. Pressure ph dressing applied. Administered Medications: 07:54 Drug: Reglan 10 mg Route: IVP; Site: right antecubital; ph 09:00 Follow up: Response: No adverse reaction; Pain is decreased; Nausea is decreased ph 07:54 Drug: Benadryl 25 mg Route: IVP; Site: right antecubital; ph 09:00 Follow up: Response: No adverse reaction ph 07:54 Drug: NS 0.9% 1000 ml Route: IV; Rate: 1000 ml; Site: right antecubital; ph 09:00 Follow up: Response: No adverse reaction; IV Status: Completed infusion; IV Intake: ph 1000ml Intake: 09:00 IV: 1000ml; Total: 1000ml. ph Outcome: 08:48 Discharge ordered by MD. hughes 09:17 Patient left the ED. ph 09:17 Discharged to home ambulatory, with significant other. ph 09:17 Condition: good 09:17 Discharge instructions given to patient, Instructed on discharge instructions, follow up and referral plans. Demonstrated understanding of instructions, follow-up care. Signatures: Debi Hernandez Shelby, RN RN Reza Lott PA PA jr8 Yue Almeida RN RN [facility] Corrections: (The following items were deleted from the chart) 10:06 09:30 Reassessment: Patient appears in no apparent distress at this time. Patient ph and/or family updated on plan of care and expected duration. Pain level reassessed. Patient is alert, oriented x 3, equal unlabored respirations, skin warm/dry/pink. Patient states symptoms have improved. ph
[2019-10-20 09:21] VITALS: BP 117/83; TEMP 98.2; O2SAT 99
== END 2019-10-20 09:17 | disposition home or self-care (01) ==
LOC: ER 07:11
DX: R51 Headache (principal); Z91.030 Bee allergy status; Z91.013 Allergy to seafood; Z88.2 Allergy status to sulfonamides; Z91.018 Allergy to other foods; F17.210 Nicotine dependence, cigarettes, uncomplicated
CPT/HCPCS: 96361; 96374; 96375; 99283; J1200; J2765; J7030